=== PATIENT | female | born 1990 | race Caucasian/White ===

== ENCOUNTER → 2017-06-29 | Outpatient (CLI) | payer OTHER ==
[~2017-06-29] MED LIST: ACET-2267 PO; ACET1TAB43 PO; ACHD5005 PO; CYCL10TA9 PO; DCS100C PO; DOCU-143 PO; FEXO180T PO; FRS325T PO; HYDR-3454 PO; HYDR-707 PO; IBUP-1773 PO; Ibuprofen PO; METH4TAB PO; MOME15CR17 TP; ONDA-42 SL; PREN1TAB25 PO; RNT150T PO
--- NOTE | 2017-06-29 18:18 | Diagnostic Imaging Report ---
INDICATION: Z34.92, second trimester . TECHNIQUE: Multiple real-time grayscale images were obtained over the gravid uterus. COMPARISON: None. FINDINGS: A single live intrauterine gestation is noted. The fetus is in a variable presentation throughout the examination. Amniotic fluid index is subjectively within normal limits. The placenta is posteriorly located without evidence of placenta previa. The cervix measures 5.5 cm and is closed. cardiac motion is documented at 167 beats per minute. biometrics are symmetric. They are consistent with an estimated gestational age of 19 weeks and 4 days. This is consistent with clinical dating. Intracranial contents are unremarkable. The spine is grossly unremarkable, though not optimally visualized secondary to lie. Four-chamber heart, stomach, kidneys, and three-vessel cord are unremarkable. Biometrical measurements are as follows: Biparietal 4.33 cm, age 19 weeks 1 days. Head circumference 16.56 cm, age 19 weeks 2 days. Abdominal circumference 14.80 cm, age 20 weeks 1 days. Femur length 3.06 cm, age 19 weeks 4 days. Sonographic estimate age: 19 weeks 4 days. Sonographic estimated date of delivery: 11/19/2017. Estimated Weight: 309 gm (+/- 45 gm). LMP percentile: 18%. heart rate: 167 beats per minute. number: 1 of 1. IMPRESSION: Single live intrauterine gestation at an estimated gestational age of 19 weeks and 4 days. This is consistent with clinical dating. No definite anomaly identified at this time, though evaluation is slightly limited as described above. Dictated by: Dictated on workstation # [id number]
== END ==
LOC: RAD 16:41
PROVIDERS: ATTEND Obstetrics & Gynecology
DX: Z34.92 Encounter for supervision of normal pregnancy, unspecified, second trimester (principal); Z3A.19 19 weeks gestation of pregnancy
CPT/HCPCS: 76805

== ENCOUNTER 2017-11-09 11:00 | Inpatient (IN) | payer OTHER ==
[2017-11-09] VITALS (38 sets, daily range): BP systolic 126–171; BP diastolic 56–106
[~2017-11-09] VITALS: Ht 157.5 cm; Wt 104.4 kg
--- OUTSIDE RECORDS SUMMARY | 2017-11-09 11:35 | XMS REPORT ---
Author Author NAS FERMIN [facility] Address [address] [place] [address] Care Team Providers Care Light Bulb Assembler Name Role Phone NAS FERMIN Unavailable PROBLEMS Type Condition ICD9-CM Code PGJ33-NG Code Onset Dates Condition Status SNOMED Code Problem Need for prophylactic vaccination and inoculation, Influenza V04.81 Active 950243036 Problem Rash and other nonspecific skin eruption 782.1 Active 229739421 Problem Unspecified pruritic disorder 698.9 Active 512379502 Problem Allergy, unspecified not elsewhere classified 995.3 Active 685419870 Problem Unspecified conjunctivitis 372.30 Active 8234939 Problem Acute sinusitis, unspecified 461.9 Active 90789300 Problem Postnasal drip 784.91 Active 35347855 Problem Acute upper respiratory infections of unspecified site 465.9 Active 67757409 Problem Acute pharyngitis 462 Active 213107446 Problem Screening examination for pulmonary tuberculosis V74.1 Active 541758306 ALLERGIES Unknown Allergies SOCIAL HISTORY No smoking Hx information available PLAN OF CARE VITAL SIGNS MEDICATIONS Unknown Medications RESULTS No Results PROCEDURES Procedure Date Ordered Related Diagnosis Body Site TB INTRADERMAL 2016-02-28 Negative TB INTRADERMAL TEST Feb 28, 2016 SINGLE IMMUNIZATION ADMIN Feb 28, 2016 HEP B (ADULT) Feb 28, 2016 IMMUNIZATIONS Vaccine Route Administration Date Status HEP B (ADULT) IM Intramuscular Feb 28, 2016 Administered
--- OUTSIDE RECORDS SUMMARY | 2017-11-09 11:35 | XMS REPORT ---
Author Author NAS FERMIN [facility] Address [address] [place] [address] Care Team Providers Care Dump Worker Name Role Phone NAS FERMIN Unavailable PROBLEMS Type Condition ICD9-CM Code NCE69-SS Code Onset Dates Condition Status SNOMED Code Problem Need for prophylactic vaccination and inoculation, Influenza V04.81 Active 770982187 Problem Postnasal drip 784.91 Active 48748061 Problem Allergy, unspecified not elsewhere classified 995.3 Active 969102713 Problem Screening examination for pulmonary tuberculosis V74.1 Active 514339301 Problem Unspecified conjunctivitis 372.30 Active 4983960 Problem Acute sinusitis, unspecified 461.9 Active 69595462 Problem Unspecified pruritic disorder 698.9 Active 076468246 Problem Rash and other nonspecific skin eruption 782.1 Active 768937689 Problem Acute pharyngitis 462 Active 909814735 Problem Acute upper respiratory infections of unspecified site 465.9 Active 83118049 ALLERGIES Unknown Allergies SOCIAL HISTORY No smoking Hx information available PLAN OF CARE VITAL SIGNS MEDICATIONS Unknown Medications RESULTS No Results PROCEDURES Procedure Date Ordered Related Diagnosis Body Site TB INTRADERMAL TEST Mar 21, 2016 IMMUNIZATIONS No Known Immunizations
--- OUTSIDE RECORDS SUMMARY | 2017-11-09 11:35 | XMS REPORT ---
Author NAS Alvarenga [facility] e[employer] Address Unknown Phone Unavailable Care Team Providers Care Rabbit Dresser Name Role Phone NAS FERMIN CP Unavailable Allergies No Known Allergies Problems Problem Type Condition Code Onset Dates Condition Status Problem Allergy, unspecified not elsewhere classified 995.3 Active Problem Unspecified pruritic disorder 698.9 Active Problem Need for prophylactic vaccination and inoculation, Influenza V04.81 Active Assessment Encounter for immunization Z23 Active Problem Acute sinusitis, unspecified 461.9 Active Problem Acute pharyngitis 462 Active Problem Unspecified conjunctivitis 372.30 Active Problem Acute upper respiratory infections of unspecified site 465.9 Active Problem Rash and other nonspecific skin eruption 782.1 Active Problem Screening examination for pulmonary tuberculosis V74.1 Active Problem Postnasal drip 784.91 Active Medications No Known Medications Procedures Procedure Coding System Code Date SINGLE IMMUNIZATION ADMIN CPT-4 26942 Jan 11, 2015 FLUARIX QUAD (3 & UP)-GSK-2014 CPT-4 74426 Jan 11, 2015 Results No Known Results Immunizations Vaccine Administration Date FLUARIX QUAD (3 & UP)-GSK-2014Jan 11, 2015 Summary Purpose eClinicalWorks Submission
--- OUTSIDE RECORDS SUMMARY | 2017-11-09 11:36 | XMS REPORT | Continuity of Care Document ---
Author Author [facility] Address Unknown Phone Unavailable Allergies Active Description Code Type Severity Reaction Onset Reported/Identified Relationship to Patient Clinical Status Yes No Known Drug Allergies [id number] Drug Allergy Unknown N/A 05/15/2012 Medications There is no data. Problems Date Dx Coded Attending Type Code Diagnosis Diagnosed By 10/10/2010 NAS FERMIN DO V06.1 TDAP DX 10/10/2010 UMBERTO ENG APRN V06.1 TDAP DX 10/10/2010 NAS FERMIN DO V06.1 TDAP DX 10/10/2010 GILDA REIS APRN V06.1 TDAP DX 08/25/2011 NAS FERMIN DO V74.1 TB SCREENING 08/25/2011 UMBERTO ENG APRN V74.1 TB SCREENING 08/25/2011 NAS FERMIN DO V74.1 TB SCREENING 08/25/2011 GILDA REIS APRN R V74.1 TB SCREENING 03/30/2012 NAS FERMIN DO K 465.9 UPPER RESPIRATORY INFECTION 03/30/2012 NAS FERMIN DO 698.9 UNSPECIFIED PRURITIC DISORDER 03/30/2012 NAS FERMIN DO 782.1 RASH 03/30/2012 NAS FERMIN DO K 784.91 POSTNASAL DRIP 03/30/2012 UMBERTO ENG APRN 465.9 UPPER RESPIRATORY INFECTION 03/30/2012 UMBERTO ENG APRN 698.9 UNSPECIFIED PRURITIC DISORDER 03/30/2012 UMBERTO ENG APRN 782.1 RASH 03/30/2012 UMBERTO ENG APRN 784.91 POSTNASAL DRIP 03/30/2012 NAS FERMIN DO K 465.9 UPPER RESPIRATORY INFECTION 03/30/2012 JOSR FERMIN DOA K 698.9 UNSPECIFIED PRURITIC DISORDER 03/30/2012 JOSR FERMIN DOA K 782.1 RASH 03/30/2012 NAS FERMIN DO K 784.91 POSTNASAL DRIP 03/30/2012 CHATO TRAMMELLN, GILDA R 465.9 UPPER RESPIRATORY INFECTION 03/30/2012 CHATO TRAMMELLN, GILDA R 698.9 UNSPECIFIED PRURITIC DISORDER 03/30/2012 CHATO SAEZ, GILDA R 782.1 RASH 03/30/2012 GILDA REIS APRN R 784.91 POSTNASAL DRIP 05/15/2012 Ot 789.03 05/15/2012 Ot 924.01 05/15/2012 Ot E000.8 05/15/2012 Ot E885.9 02/24/2013 CARMELLA ARMENDARIZ MD Ot 924.8 MULTIPLE CONTUSIONS NEC 02/24/2013 CARMELLA ARMENDARIZ MD Ot 959.01 HEAD INJURY, NOS 02/24/2013 CARMELLA ARMENDARIZ MD Ot E000.8 OTHER EXTERNAL CAUSE STATUS 02/24/2013 CARMELLA ARMENDARIZ MD Ot 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 10/21/2013 DIALLO AYON DO Ot 642.33 10/21/2013 DIALLO AYON DO Ot 784.0 10/29/2013 YU RADHA COBOS Ot 642.31 10/29/2013 [place] DORADHA Ot 643.91 10/29/2013 YU RADHA COBOS Ot 787.91 10/29/2013 [place] DORADHA Ot V06.1 10/29/2013 [place] DORADHA Ot V06.4 10/29/2013 YU RADHA COBOS Ot V27.0 12/19/2013 CLAIRE PRADO DO Ot 574.20 12/29/2013 UMBERTO ENG APRN V04.81 FLU SHOT 12/29/2013 ZANDER NAS V04.81 FLU SHOT 12/29/2013 GILDA REIS APRN V04.81 FLU SHOT 01/31/2014 ADRIANA VELASQUEZ, ERNA Sinclair Ot 787.01 01/31/2014 DIALLO AYON DO Ot 401.9 01/31/2014 DIALLO AYON DO Ot 784.0 01/31/2014 CLAIRE PRADO DO Ot 574.20 01/31/2014 CLAIRE PRADO DO Ot V72.63 01/31/2014 PRADO DO, CLAIRE D Ot V74.8 2014 PRADO DO, CLAIRE D Ot 574.20 2014 PRADO DO, CLAIRE D Ot V72.63 2014 PRADO DO, CLAIRE D Ot V74.8 04/08/2014 FERMIN NAS COBOS K 995.3 ALLERGY UNSPECIFIED NOT ELSEWHERE CLASSIFIED 04/08/2014 CHATO TEAM PHYSICIAN, GILDA R 995.3 ALLERGY UNSPECIFIED NOT ELSEWHERE CLASSIFIED 04/25/2014 CHATO TEAM PHYSICIAN, GILDA R 372.30 CONJUNCTIVITIS UNSPECIFIED 04/25/2014 CHATO TEAM PHYSICIAN, GILDA R 461.9 SINUSITIS ACUTE 04/25/2014 CHATO TEAM PHYSICIAN, GILDA R 462 ACUTE PHARYNGITIS 01/31/2015 YU DO, RADHA C Ot Z34.90 01/31/2015 YU DO, RADHA C Ot Z36 02/23/2015 YU DO, RADHA C Ot Z34.90 02/23/2015 YU DO, RADHA C Ot Z36 05/02/2015 BISI VELASQUEZ, ENZO N Ot O47.9 FALSE LABOR, UNSPECIFIED 05/02/2015 BISI VELASQUEZ, ENZO N Ot Z3A.00 WEEKS OF GESTATION OF NOT SPEC 05/24/2015 YU DO, RADHA C Ot O13.3 05/24/2015 YU DO, RADHA C Ot O69.81X0 05/24/2015 YU DO, RADHA C Ot Z37.0 05/24/2015 YU DO, RADHA C Ot Z3A.37 10/05/2015 YU DO, RADHA C Ot N63 UNSPECIFIED LUMP IN BREAST 10/05/2015 YU DO, RADHA C Ot N63 UNSPECIFIED LUMP IN BREAST 10/26/2015 YU DO, RADHA C Ot N63 UNSPECIFIED LUMP IN BREAST 12/30/2015 ABRAHAN MAE DOA K Ot L23.2 ALLERGIC CONTACT DERMATITIS DUE TO TYRON 12/30/2015 TU COBOS JANET K Ot R21 RASH AND OTHER NONSPECIFIC SKIN ERUPTION 01/01/2016 ABRAHAN MAE DOA K Ot L23.2 ALLERGIC CONTACT DERMATITIS DUE TO TYRON 01/01/2016 TU COBOS JANET K Ot R21 RASH AND OTHER NONSPECIFIC SKIN ERUPTION 06/30/2017 RAHDA YU DO Ot Z34.92 ENCNTR FOR SUPRVSN OF NORMAL PREG, UNSP, 06/30/2017 RADHA YU DO Ot Z3A.19 19 WEEKS GESTATION OF 06/30/2017 RADHA YU DO Ot Z34.92 ENCNTR FOR SUPRVSN OF NORMAL PREG, UNSP, 06/30/2017 RDAHA YU DO Ot Z3A.19 19 WEEKS GESTATION OF 07/30/2017 RADHA YU DO Ot Z34.92 ENCNTR FOR SUPRVSN OF NORMAL PREG, UNSP, 07/30/2017 RADHA YU DO Ot Z3A.19 19 WEEKS GESTATION OF Procedures Code Description [place] [address] IMMUNOTHERAPY INJECTIONS 04/18/2014 60782 IMMUNOTHERAPY INJECTIONS 04/25/2014 Results There is no data. Encounters ACCT No. Visit Date/Time Discharge Status Pt. Type Provider Facility Loc./Unit Complaint [id number] 04/25/2014 16:37:00 04/25/2014 23:59:59 CLS Outpatient GILDA REIS APRN [id number] 04/18/2014 16:56:00 04/18/2014 23:59:59 CLS Outpatient NAS FERMIN DO [id number] 12/29/2013 15:05:00 12/29/2013 23:59:59 CLS Outpatient UMBERTO ENG APRN [id number] 03/30/2012 14:16:00 03/30/2012 23:59:59 CLS Outpatient NAS FERMIN DO [id number] 01/31/2014 07:42:07 ACT Document Registration [id number] 06/29/2017 16:41:00 06/29/2017 23:59:59 CLS Outpatient RADHA YU DO [facility] RAD Z34.92 2ND TRIMESTER [id number] 12/30/2015 17:58:00 12/30/2015 19:24:00 DIS Emergency JANET MAE DO [facility] ER FACIAL SWELLING/REDNESS [id number] 10/04/2015 10:00:00 10/04/2015 23:59:59 CLS Outpatient RADHA UY DO [facility] RAD BREAST LUMP [id number] 05/22/2015 08:24:00 05/24/2015 12:50:00 DIS Inpatient RADHA YU DO Sriram [facility] LDRP [id number] 05/02/2015 19:54:00 05/02/2015 22:53:00 DIS Outpatient BISI VELASQUEZ, ENZO Danielle [facility] [id number] 01/29/2015 14:37:00 01/29/2015 23:59:59 CLS Outpatient RADHA YU DO [facility] RAD [id number] 01/31/2014 07:31:00 01/31/2014 09:32:00 DIS Emergency ADRIANA VELASQUEZ, ERNA Sinclair [facility] ER [id number] 12/19/2013 06:00:00 12/19/2013 13:25:00 DIS Outpatient CLAIRE PRADO DO [facility] [id number] 12/13/2013 10:24:00 12/13/2013 23:59:59 CLS Outpatient CLAIRE PRADO DO [facility] PREOP [id number] 10/26/2013 19:18:00 10/29/2013 21:00:00 DIS Inpatient RADHA YU DO Sriram [facility] LDRP [id number] 10/22/2013 11:23:00 10/22/2013 23:59:59 CLS Outpatient DIALLO AYON DO S [facility] LAB [id number] 10/21/2013 09:47:00 10/21/2013 12:50:00 DIS Outpatient DIALLO AYON DO S [facility] WSo [id number] 02/24/2013 09:12:00 02/24/2013 12:33:00 DIS Emergency CARMELLA ARMENDARIZ MD [facility] ER [id number] 01/31/2014 09:54:00 Document Registration [id number] 05/15/2012 09:15:00 Document Registration
[2017-11-09] MEDS ORDERED: LIDOCAINE/EPI 2% 1:200,00 (XYLOCAINE) 10 ML VIAL INJ ONE (12:30)
[2017-11-09] MEDS ORDERED: MINERAL OIL CONCENTRATE 99.9% 15 ML UDC TOP PRN (12:30)
[2017-11-09 12:57] LABS: BASOPHILS % (AUTO) 0 % (0-10); EOSINOPHILS # (AUTO) 0.2 10^3/uL (0.0-0.3); EOSINOPHILS % (AUTO) 1 % (0-10); HEMATOCRIT 36 % (35-52); HEMOGLOBIN 12.2 G/DL (11.5-16.0); LYMPHOCYTES # (AUTO) 2.4 X 10^3 (1.0-4.0); LYMPHOCYTES % (AUTO) 19 % (12-44); MEAN CORPUSCULAR HEMOGLOBIN 28 PG (25-34); MEAN CORPUSCULAR HGB CONC 34 G/DL (32-36); MEAN CORPUSCULAR VOLUME 83 FL (80-99); MEAN PLATELET VOLUME 10.5 FL (7.4-10.4); MONOCYTES % (AUTO) 8 % (0-12); NEUTROPHILS # (AUTO) 9.1 X 10^3 (1.8-7.8); NEUTROPHILS % (AUTO) 72 % (42-75); PLATELET COUNT 305 10^3/uL (130-400); RED BLOOD COUNT 4.38 10^6/uL (4.35-5.85); RED CELL DISTRIBUTION WIDTH 14.8 % (10.0-14.5); WHITE BLOOD COUNT 12.7 10^3/uL (4.3-11.0)
[2017-11-09 13:01] LABS: BILIRUBIN,URINE NEGATIVE (NEGATIVE); CLARITY,URINE CLEAR; COLOR,URINE YELLOW; GLUCOSE, URINE (UA) NEGATIVE (NEGATIVE); KETONES,URINE 2+ (NEGATIVE); LEUKOCYTE ESTERASE ,URINE NEGATIVE (NEGATIVE); NITRITE,URINE NEGATIVE (NEGATIVE); PH,URINE 7 (5-9); PROTEIN,URINE NEGATIVE (NEGATIVE); UROBILINOGEN,URINE NORMAL (NORMAL)
--- NOTE | 2017-11-09 13:01 | History & Physical-OB ---
OB - Chief Complaint & HPI Date/Time Date of Admission: Date of Admission: Nov 09, 2017 at 11:00 Time Seen by Provider: 12:30 Chief Complaint/History OB-Reason for Admission/Chief: Onset of Labor Hx : 4 Hx Para: 2 Expected Date of Delivery: Nov 14, 2017 Gestational Age in Weeks: 39 Gestational Age in Days: 2 Other reason for admission: Presented to women's services with complaint of regular contractions. every 1- 2 minutes on arrival. complicated by gestational hypertension, no proteinuria. otherwise uncomplicated. Admission Nurse Assessment Rev: Yes History of Labs a-/- HIV, Hep C, Hep B - Rub I GBS - VDRL NR Allergies and Home Medications Allergies Coded Allergies: No Known Drug Allergies (Unverified , 05/15/12) Home Medications Docusate Sodium 100 Mg Capsule, 100 MG PO BID PRN for CONSTIPATION-1ST LINE Prescribed by: DIALLO AYON on 11/11/17813 Ibuprofen 600 Mg Tablet, 600 MG PO Q6H Prescribed by: DIALLO AYON on 11/11/17813 Vit#96/Ferrous Fum/Fa 1 Each Tablet, 1 TAB PO DAILY, (Reported) [Benzocaine/Menthol] 56 ML AEROSOL, 56 ML TP UD PRN for PAIN- SEE INSTRUCTIONS EXTERNAL USE ONLY Prescribed by: DIALLO AYON on 11/11/17813 Patient Home Medication List Home Medication List Reviewed: No OB - History Hx of Present Ultrasounds: Normal mid trimester US Obstetrical Complications: Gestational Hypertension Medical Complications: None Information Induced Hypertension: Yes Maternal Gestational Diabetes: No Hemorrhage: No Obstetrical History Hx : 4 Hx Para: 2 Hx # Term Pregnancies: 2 Hx # Pregnancies: 0 Number of Living Children: 2 Hx Termination: No Hx Total # of Abortions (Spona: 1 Hx Multiple Gestation: No Hx Stillbirth: No Hx Complication: No Hx Induced Hypertens: No Hx Maternal Gestational Diabet: No Delivery History Hx Dystocia: No Hx Large For Gestational Age I: No Hx Small for Gestational Age I: No Hx Section: No Hx Vaginal Delivery Post C-Sec: No Hx Blood Disorders: No Adverse Rxn to Tranfusion: No Patient Past Medical History NC Social History/Family History HIV/AIDS: No Recent Infectious Disease Expo: No Sexually Transmitted Disease: No Alcohol Use: Denies Use Recreational Drug Use: No Smoking Cessation: Never smoker Immunizations Hepatitis A: No Hepatitis B: Yes Tetanus Booster (TDap): Less than 5yrs Date of Influenza Vaccine: Jan 14, 2015 Rubella: immune RPR/VDRL: Negative GBS Status: Negative HBsAG: Negative OB - Admission Exam Physical Exam Heart: Rhythm Normal Lungs: Clear, Crackles Abdomen: Gravid Cervical Dilatation: 2cm Effacement: 75% Station: -2 Membranes: Intact Heart Rate: 130's Accelerations: Accelerations Present Decelerations: No Decelerations Short Term Variability: Present Parachute/Combatant Diver Officer Variability: Average (6-25) Labs Laboratory Tests Test 11/09/17 12:30 11/09/17 12:45 Range/Units White Blood Count 12.7 H 4.3-11.0 10^3/uL Red Blood Count 4.38 4.35-5.85 10^6/uL Hemoglobin 12.2 11.5-16.0 G/DL Hematocrit 36 35-52 % Mean Corpuscular Volume 83 80-99 FL Mean Corpuscular Hemoglobin 28 25-34 PG Mean Corpuscular Hemoglobin Concent 34 32-36 G/DL Red Cell Distribution Width 14.8 H 10.0-14.5 % Platelet Count 305 130-400 10^3/uL Mean Platelet Volume 10.5 H 7.4-10.4 FL Neutrophils (%) (Auto) 72 42-75 % Lymphocytes (%) (Auto) 19 12-44 % Monocytes (%) (Auto) 8 0-12 % Eosinophils (%) (Auto) 1 0-10 % Basophils (%) (Auto) 0 0-10 % Neutrophils # (Auto) 9.1 H 1.8-7.8 X 10^3 Lymphocytes # (Auto) 2.4 1.0-4.0 X 10^3 Monocytes # (Auto) 1.0 0.0-1.0 X 10^3 Eosinophils # (Auto) 0.2 0.0-0.3 10^3/uL Basophils # (Auto) 0.0 0.0-0.1 10^3/uL OB - Assessment/Plan/Diagnosis Assessment Assessment: active labor Admission Dx Active labor at 39 + weeks gestational hypertension Admission Status: Inpatient Order (span 2 midnights) Reason for Inpatient Admission: labor/delivery Plan Plan: Expectant Management Other Plan Anticipate RADHA BASS DO Nov 09, 2017 13:01
[2017-11-09 13:07] LABS: BACTERIA,URINE NEGATIVE /HPF; RBC,URINE RARE /HPF; SQUAMOUS EPITHELIAL CELL,UR 0-2 /HPF; WBC,URINE RARE /HPF
[2017-11-09 13:24] LABS: URINE CREATININE FOR RATIO 29 MG/DL (30-125); URINE PROTEIN FOR RATIO ONLY < 6 MG/DL (6-12)
[2017-11-09] MEDS: D5 LR IV SOLUTION 1,000 ML IV SCH ×2 (13:27→21:20)
[2017-11-09] MEDS ORDERED: CATHETER FLUSH 10 ML SYR IV SCH (14:00)
[2017-11-09 14:08] LABS: ALANINE AMINOTRANSFERASE 15 U/L (0-55); ALBUMIN 3.4 GM/DL (3.2-4.5); ALKALINE PHOSPHATASE 112 U/L (40-136); BILIRUBIN,TOTAL 0.4 MG/DL (0.1-1.0); BUN/CREATININE RATIO 11; CALCIUM 9.5 MG/DL (8.5-10.1); CARBON DIOXIDE 17 MMOL/L (21-32); CHLORIDE 107 MMOL/L (98-107); CREATININE SERUM 0.56 MG/DL (0.60-1.30); GFR ESTIMATED > 60; GLUCOSE 73 MG/DL (70-105); POTASSIUM 4.5 MMOL/L (3.6-5.0); SODIUM 136 MMOL/L (135-145); URIC ACID 4.1 MG/DL (2.6-7.2)
[2017-11-09] MEDS ORDERED: MISOPROSTOL 100 MCG (CYTOTEC) TAB PO ONE (18:00)
[2017-11-09] MEDS ORDERED: SUFENTA 0.6MCG/ML BUPIVA 0.125 100 ML ONE (20:20)
[2017-11-09] MEDS ORDERED: fentaNYL INJECTION 100 MCG/2 ML AMP ONE (20:37)
[2017-11-09] MEDS ORDERED: BUPIVACAINE 0.25% 30 ML (SENSORCAINE) VIAL ONE (20:37)
[2017-11-09] MEDS ORDERED: LIDOCAINE PF 2% 5 ML (XYLOCAINE) VIAL ONE (20:37)
[2017-11-09] MEDS ORDERED: LIDOCAINE/EPI 2% 1:200,00 (XYLOCAINE) 10 ML VIAL ONE (21:06)
[2017-11-09] MEDS ORDERED: OXYTOCIN/NORMAL SALINE 500 ML IV ONE (21:06)
[2017-11-09] MEDS ORDERED: LACTATED RINGERS 1,000 ML IV ONE ×2 (21:23)
[2017-11-09] MEDS ORDERED: EPIDURAL (SUFENTA 0.6MCG/ML BUPIVA 0.125%) 100 ML BAG EPI PRN (21:30)
[2017-11-09] MEDS ORDERED: NALOXONE 0.4 MG/ML 1 ML (NARCAN) VIAL IV PRN (21:30)
[2017-11-09] MEDS ORDERED: ONDANSETRON 4 MG/2 ML (SDV) Z0FRAN IV PRN (21:30)
[2017-11-09] MEDS ORDERED: OXYTOCIN/NORMAL SALINE 500 ML IV SCH (21:41)
[2017-11-09] MEDS ORDERED: MISOPROSTOL 100 MCG (CYTOTEC) TAB PO SCH (22:00)
[2017-11-10] VITALS (11 sets, daily range): BP systolic 127–161; BP diastolic 63–88
[2017-11-10] MEDS ORDERED: OXYTOCIN/NORMAL SALINE 500 ML IV SCH (00:34)
--- NOTE | 2017-11-10 00:38 | OB Labor & Delivery Record ---
Vag Delivery Note Vag Delivery Note Date of Delivery: 11/10/17 Preoperative Diagnosis: Alessia Tan is a 28 /Para 32 / , Gestational Age 39 4/7 weeks with spontaneous labor, gestational hypertension Postoperative Diagnosis: Same Surgeon: RADHA YU Anesthesia: epidural Delivery Type: vaginal Findings: Viable female infant, apgars 8/9, weight 6#10oz Lacerations: none Intact placenta with 3 vessel cord. No nuchal cord, body cord or shoulder dystocia Estimated Blood Loss: 150 ml Complications: None Condition: Stable Description of Procedure: The patient is a 28 /Para 32/ ,Gestational Age 39 4/7 weeks with spontaneous labor, gestational hypertension. She was admitted and informed consent was obtained. Her labor course was remarkable for AROM, epidural and oxytocin augmention. She progressed to complete dilatation and began to push. She was then set up for delivery. The infant's head was delivered atraumatically in the ELIZABETH position. The shoulders and remainder of the 's body were then delivered without difficulty. Upon delivery, the head was held below the level of the perineum and the mouth and nares were bulb suctioned. The cord was doubly clamped and cut and the infant was handed off to the pediatric staff. An intact placenta with 3-vessel cord delivered via Lenore and there was found to be minimal bleeding.~ Vigorous fundal massage was performed and the fundus was found to be firm. IV oxytocin was given. Examination of the vagina and perineum revealed no laceration repaired in the usual fashion with 3-0 vicryl suture. Following the delivery, sponge, instrument and needle counts were correct. Mom and baby were both in stable condition in the labor suite. Vitals - Labs Vital Signs - I&O Vital Signs Date Time Temp Pulse Resp B/P (MAP) Pulse Ox O2 Delivery O2 Flow Rate FiO2 11/09/17 22:45 88 20 133/67 (89) 99 Room Air 11/09/17 22:30 93 20 131/64 (86) 99 Room Air 11/09/17 22:15 80 20 131/67 (88) 100 Room Air 11/09/17 22:10 90 20 127/60 (82) 99 Room Air 11/09/17 22:00 93 20 126/58 (80) 99 Room Air 11/09/17 21:45 90 20 139/78 (98) 99 Room Air 11/09/17 21:40 82 20 132/60 (84) 99 Room Air 11/09/17 21:35 83 20 128/56 (80) 99 Room Air 11/09/17 21:30 85 20 126/59 (81) 99 Room Air 11/09/17 21:25 86 20 127/61 (83) 99 Room Air 11/09/17 21:20 82 20 145/68 (93) 99 Room Air 11/09/17 21:15 97.6 90 20 138/68 (91) 99 Room Air 11/09/17 21:10 95 20 142/74 (96) 99 Room Air 11/09/17 21:05 90 20 135/71 (92) 99 Room Air 11/09/17 21:02 86 20 141/71 (94) 99 Room Air 11/09/17 20:59 98 20 136/79 (98) Room Air 11/09/17 20:56 96 20 139/79 (99) Room Air 11/09/17 20:52 112 20 142/76 (98) 100 Room Air 11/09/17 20:48 112 20 153/85 (107) 100 Room Air 11/09/17 20:42 97 20 141/78 (99) 99 Room Air 11/09/17 20:40 102 20 140/76 (97) Room Air 11/09/17 20:15 90 20 147/84 (105) Room Air 11/09/17 20:10 102 20 141/91 (108) Room Air 11/09/17 19:40 93 20 137/62 (87) Room Air 11/09/17 19:10 97.5 88 20 140/77 (98) Room Air 11/09/17 15:24 99 20 142/66 (91) Room Air 11/09/17 14:55 97 20 137/78 (97) Room Air 11/09/17 14:25 94 20 139/66 (90) Room Air 11/09/17 13:55 88 20 142/78 (99) Room Air 11/09/17 13:27 99 20 135/66 (89) Room Air 11/09/17 12:25 100 20 138/78 (98) Room Air 11/09/17 11:50 97.8 105 20 144/85 (104) Room Air 11/09/17 11:15 95 20 155/80 (105) Room Air 11/09/17 11:10 107 20 171/106 (127) Room Air I & O 11/10/17 07:00 Intake Total 2000 ml Balance 2000 ml Labs Laboratory Tests 11/09/17 12:30: Urine Color YELLOW, Urine Clarity CLEAR, Urine pH 7, Urine Specific Boykins 1.010L, Urine Protein < 6L, Urine Glucose (UA) NEGATIVE, Urine Ketones 2+H, Urine Nitrite NEGATIVE, Urine Bilirubin NEGATIVE, Urine Urobilinogen NORMAL, Urine Leukocyte Esterase NEGATIVE, Urine RBC (Auto) NEGATIVE, Urine RBC RARE, Urine WBC RARE, Urine Squamous Epithelial Cells 0-2, Urine Crystals NONE, Urine Bacteria NEGATIVE, Urine Casts NONE, Urine Mucus NEGATIVE, Urine Culture Indicated NO, Urine Creatinine 29L, Urine Protein/Creatinine Ratio 11/09/17 12:45: White Blood Count 12.7H, Red Blood Count 4.38, Hemoglobin 12.2, Hematocrit 36, Mean Corpuscular Volume 83, Mean Corpuscular Hemoglobin 28, Mean Corpuscular Hemoglobin Concent 34, Red Cell Distribution Width 14.8H, Platelet Count 305, Mean Platelet Volume 10.5H, Neutrophils (%) (Auto) 72, Lymphocytes (%) (Auto) 19 , Monocytes (%) (Auto) 8, Eosinophils (%) (Auto) 1, Basophils (%) (Auto) 0, Neutrophils # (Auto) 9.1H, Lymphocytes # (Auto) 2.4, Monocytes # (Auto) 1.0, Eosinophils # (Auto) 0.2, Basophils # (Auto) 0.0 11/09/17 13:20: Sodium Level 136, Potassium Level 4.5, Chloride Level 107, Carbon Dioxide Level 17L, Anion Gap 12, Blood Urea Nitrogen 6L, Creatinine 0.56L, Estimat Glomerular Filtration Rate > 60, BUN/Creatinine Ratio 11, Glucose Level 73, Uric Acid 4.1, Calcium Level 9.5, Corrected Calcium 10.0, Total Bilirubin 0.4, Aspartate Amino Transf (AST/SGOT) 25, Alanine Aminotransferase (ALT/SGPT) 15, Alkaline Phosphatase 112, Lactate Dehydrogenase 267H, Total Protein 7.0, Albumin 3.4 RADHA YU DO Nov 10, 2017 00:38
[2017-11-10] MEDS ORDERED: MEASLES,MUMPS,RUBELLA 1 EA INJ SQ ONE (00:45)
[2017-11-10] MEDS ORDERED: DIBUCAINE (NUPERCAINAL) 1% OINT 30 GM TOP PRN (00:45)
[2017-11-10] MEDS ORDERED: BENZOCAINE/MENTHOL (DERMOPLAST) 56 ML CAN TP PRN (00:45)
[2017-11-10] MEDS ORDERED: WITCH HAZEL(TUCKS) 40 EA JAR TOP PRN (00:45)
[2017-11-10] MEDS ORDERED: ACETAMINOPHEN 500 MG TAB (TYLENOL) PO PRN (00:45)
[2017-11-10] MEDS ORDERED: TETANUS,DIPTH,PERTUSS P/F (BOOSTRIX) 0.5 ML VIAL IM ONE (00:45)
[2017-11-10] MEDS: IBUPROFEN 600 MG (MOTRIN) TAB PO SCH ×4 (01:00→21:06)
[2017-11-10] MEDS ORDERED: CATHETER FLUSH 10 ML SYR IV SCH (06:00)
[2017-11-10] MEDS ORDERED: PRENATAL VITAMIN 1 EA TAB PO SCH (07:00)
--- NOTE | 2017-11-10 07:07 | Anesthesia-Regional Post-Op ---
Regional Patient Condition Mental Status: Alert, Oriented x3 Circulation: Same as Pre-Op Headache: Absent Sensation: Full Recovery Motor Block: Absent Post Op Complications Complications None Follow Up Care/Instructions Patient Instructions None needed. Anesthesia/Patient Condition Patient is doing well, no complaints, stable vital signs, no apparent adverse anesthesia problems. No complications reported per nursing. BHAVANA JAIMES CRNA Nov 10, 2017 07:07
[2017-11-10] MEDS: FERROUS SULF 325 MG (IRON) TAB PO SCH (08:25)
[2017-11-10] MEDS: DOCUSATE SODIUM 100 MG (COLACE) CAP PO SCH ×2 (08:25→21:06)
[2017-11-11] MEDS: IBUPROFEN 600 MG (MOTRIN) TAB PO SCH ×2 (03:01→08:48)
[2017-11-11 03:02] VITALS: BP 130/84
[2017-11-11 06:06] LABS: BASOPHILS # (AUTO) 0.1 10^3/uL (0.0-0.1); BASOPHILS % (AUTO) 1 % (0-10); EOSINOPHILS # (AUTO) 0.4 10^3/uL (0.0-0.3); EOSINOPHILS % (AUTO) 5 % (0-10); HEMATOCRIT 35 % (35-52); HEMOGLOBIN 11.5 G/DL (11.5-16.0); LYMPHOCYTES # (AUTO) 2.9 X 10^3 (1.0-4.0); LYMPHOCYTES % (AUTO) 30 % (12-44); MEAN CORPUSCULAR HEMOGLOBIN 28 PG (25-34); MEAN CORPUSCULAR HGB CONC 33 G/DL (32-36); MEAN CORPUSCULAR VOLUME 85 FL (80-99); MEAN PLATELET VOLUME 10.8 FL (7.4-10.4); MONOCYTES # (AUTO) 1.2 X 10^3 (0.0-1.0); MONOCYTES % (AUTO) 12 % (0-12); NEUTROPHILS # (AUTO) 5.2 X 10^3 (1.8-7.8); NEUTROPHILS % (AUTO) 53 % (42-75); PLATELET COUNT 270 10^3/uL (130-400); RED BLOOD COUNT 4.09 10^6/uL (4.35-5.85); RED CELL DISTRIBUTION WIDTH 14.9 % (10.0-14.5); WHITE BLOOD COUNT 9.8 10^3/uL (4.3-11.0)
[2017-11-11] MEDS ORDERED: Benzocaine/Menthol TP (08:14)
[2017-11-11] MEDS ORDERED: IBUP-844 PO (08:14)
[2017-11-11] MEDS ORDERED: DOCU100C37 PO (08:14)
--- NOTE | 2017-11-11 08:21 | Discharge Inst-Women's Service ---
Discharge Inst-Women's Serv Depart Medication/Instructions New, Converted or Re-Newed RX: Transmitted to Pharmacy Final Diagnosis vaginal delivery spontaneous labor Consults/Follow Up Additional Follow Up: Yes (6 weeks for pp exam) Activity Activity: Activity as Tolerated Driving Instructions: You May Drive NO SMOKING: NO SMOKING Nothing Inside Vagina: No Douching, No Rheems, No Tampons Diet Discharge Diet: No Restrictions Symptoms to Report to : Swelling Increased, Bleeding Excessive, Pain Increased, Fever Over 101 Degrees F, Vaginal Bleeding Increase, Cramps in Feet or Legs, Vaginal Discharge Foul For Any Problems or Questions: Contact Your Physician RADHA YU DO Nov 11, 2017 08:21
[2017-11-11] MEDS: FERROUS SULF 325 MG (IRON) TAB PO SCH (08:48)
[2017-11-11] MEDS: DOCUSATE SODIUM 100 MG (COLACE) CAP PO SCH (08:48)
[2017-11-11 08:50] VITALS: BP 137/84
--- NOTE | 2017-11-12 16:49 | Physician Query-General Query ---
Physician Query-General Query to Physician: Please provide clarification on the delivery note: Findings state lacerations: none Body of report "Examination of the vagina and perineum revealed no laceration repaired in the usual fashion with 3-0 vicryl suture" Please choose one of the followin. no laceration, no repair needed 2. laceration, please specify location PHYSICIAN RESPONSE: no laceration Based on the clinical findings in the record, please respond to the query above on this document as an addendum. Possible, probable, or questionable diagnosis can be coded for INPATIENTS ONLY. Physician Response: Physician Response none If you have questions please contact: Floriculturist: Ext: Thank you for your time and cooperation. Clinical Head Usher/Floriculturist This is a permanent part of the medical record DEL PADILLA Nov 12, 2017 16:49 RADHA YU DO Dec 02, 2017 14:48
== END 2017-11-11 13:10 | disposition home or self-care (01) | DRG 775 ==
LOC: LDRP 11:00
PROVIDERS: ADMIT Obstetrics & Gynecology; ATTEND Obstetrics & Gynecology
PROC: 10E0XZZ Delivery of Products of Conception, External Approach (ICD-10-PCS; principal; 2017-11-10)
DX: O13.4 Gestational [pregnancy-induced] hypertension without significant proteinuria, complicating childbirth (principal); Z3A.39 39 weeks gestation of pregnancy; Z37.0 Single live birth
CPT/HCPCS: 36415; 80053; 81000; 82570; 83615; 84156; 84550; 85025; 86850; 86900; 86901; 99212

== ENCOUNTER 2017-12-10 15:18 | Emergency (ER) | payer OTHER ==
[~2017-12-10] VITALS: Ht 157.5 cm; Wt 104.4 kg
[~2017-12-10 15:18] MED LIST changes: +Benzocaine/Menthol TP; +DOCU100C37 PO; +IBUP-844 PO
--- NOTE | 2017-12-10 17:07 | ED Chest Pain ---
General Chief Complaint: Chest Pain Stated Complaint: 20 MINS AGO EXPERIENCED EXTREME CHEST PAIN,SHAKY Nursing Triage Note: PT STATES SHE WAS FEEDING HER WHEN SHE HAD A SNEEZING ATTACK, THEN HAD SEVERE CHEST PAIN ALL THE WAY AROUND HER CHEST, BI LATERALLY. PAIN NOW RATED AT 2 BUT GOES UP TO 5 OFF AND ON, MOSTLY BETWEEN HER SHOULDER BLADES. Nursing Sepsis Screen: No Definite Risk Source: patient, family Exam Limitations: no limitations History of Present Illness Date Seen by Provider: Dec 10, 2017 Time Seen by Provider: 16:40 Initial Comments Patient is a 27-year-old female who presents to the emergency room with chest pain after a "sneezing attack". She reports that after she was done sneezing she had chest pain that felt like it was squeezing her chest bilaterally. She said the sharp pain lasted approximately 20 minutes but now she has intermittent stabbing pain between her shoulders. She denies shortness of breath. She is 4 weeks post vaginal delivery. Timing/Duration: 1 hour Severity/Quality: mild, pressure Location: shoulder (shoulder blades) Radiation: no radiation ASA po BEE BREEDER: No NTG SL BEE BREEDER: No Associated Symptoms: denies symptoms Allergies and Home Medications Allergies Coded Allergies: No Known Drug Allergies (Unverified , 05/15/12) Home Medications Docusate Sodium 100 Mg Capsule, 100 MG PO BID PRN for CONSTIPATION-1ST LINE Prescribed by: DIALLO AYON on 11/11/17813 Ibuprofen 600 Mg Tablet, 600 MG PO Q6H Prescribed by: DIALLO AYON on 11/11/17813 Vit#96/Ferrous Fum/Fa 1 Each Tablet, 1 TAB PO DAILY, (Reported) [Benzocaine/Menthol] 56 ML AEROSOL, 56 ML TP UD PRN for PAIN- SEE INSTRUCTIONS EXTERNAL USE ONLY Prescribed by: DIALLO AYON on 11/11/17813 Patient Home Medication List Home Medication List Reviewed: Yes Review of Systems Review of Systems Constitutional: see HPI; No chills, No fever Cardiovascular: See HPI, Chest Pain Musculoskeletal: see HPI, back pain All Other Systems Reviewed Negative Unless Noted: Yes Past Gqwaxtd-Pgaynw-Tmxhgg Hx Past Med/Social Hx: Reviewed Nursing Past Med/Soc Hx Patient Social History Alcohol Use: Denies Use Recreational Drug Use: No Recent Foreign Travel: No (N) Contact w/Someone Who Travel: No Recent Infectious Disease Expo: No Recent Hopitalizations: No Immunizations Up To Date Tetanus Booster (TDap): Less than 5yrs PED Vaccines UTD: Yes Date of Influenza Vaccine: Jan 14, 2015 Seasonal Allergies Seasonal Allergies: Yes (ALLERGY SHOTS WKLY) Past Medical History Surgeries: Yes (right shoulder surgery 2004, left knee scope 2008, left knee scope 2009,) Gallbladder, Orthopedic, Tonsillectomy Respiratory: Yes Asthma Cardiac: No Neurological: No : No (4 WEEKS POST ) Reproductive Disorders: No Female Reproductive Disorders: Denies Sexually Transmitted Disease: No HIV/AIDS: No Genitourinary: No Gastrointestinal: No Musculoskeletal: No Endocrine: No Loss of Vision: Denies Cancer: No Psychosocial: No Integumentary: No Blood Disorders: No Adverse Reaction/Blood Tranf: No Family Medical History Reviewed Nursing Family Hx Asthma 19 FATHER, Age:49, Onset:Unknown 19 MOTHER, Age:43, Onset:Unknown Cardiovascular disease 19 MOTHER, Age:43, Onset:40's - 50 Hypertension 19 MOTHER, Age:43, Onset:15's - 20 G8 SISTER, Onset:Unknown Kidney disease G8 SISTER, Onset:Unknown No Family History of: AIDS Asthma, Heart Disease, Hypertension Physical Exam Vital Signs Capillary Refill : Less Than 3 Seconds Height, Weight, BMI Height: 5'2.00" Weight: 230lbs. 2.0oz. 104.207776yr; 42.1 BMI Method:Stated General Appearance: No Apparent Distress, WD/WN Neck: Full Range of Motion, Normal Inspection, Non Tender Respiratory: Chest Non Tender, Lungs Clear, Normal Breath Sounds, No Accessory Muscle Use, No Respiratory Distress Cardiovascular: Regular Rate, Rhythm, No Edema, No Gallop, No JVD, No Murmur, Normal Peripheral Pulses Gastrointestinal: Normal Bowel Sounds, No Organomegaly, No Pulsatile Mass, Non Tender Neurologic/Psychiatric: Alert, Oriented x3, Normal Mood/Affect Skin: Normal Color, Warm/Dry Progress/Results/Core Measures Results/Orders Lab Results Laboratory Tests Test 12/10/17 17:00 12/10/17 19:07 Range/Units White Blood Count 13.2 H 4.3-11.0 10^3/uL Red Blood Count 4.92 4.35-5.85 10^6/uL Hemoglobin 13.4 11.5-16.0 G/DL Hematocrit 41 35-52 % Mean Corpuscular Volume 84 80-99 FL Mean Corpuscular Hemoglobin 27 25-34 PG Mean Corpuscular Hemoglobin Concent 32 32-36 G/DL Red Cell Distribution Width 14.8 H 10.0-14.5 % Platelet Count 339 130-400 10^3/uL Mean Platelet Volume 10.1 7.4-10.4 FL Neutrophils (%) (Auto) 58 42-75 % Lymphocytes (%) (Auto) 19 12-44 % Monocytes (%) (Auto) 7 0-12 % Eosinophils (%) (Auto) 15 H 0-10 % Basophils (%) (Auto) 1 0-10 % Neutrophils # (Auto) 7.7 1.8-7.8 X 10^3 Lymphocytes # (Auto) 2.5 1.0-4.0 X 10^3 Monocytes # (Auto) 1.0 0.0-1.0 X 10^3 Eosinophils # (Auto) 2.0 H 0.0-0.3 10^3/uL Basophils # (Auto) 0.1 0.0-0.1 10^3/uL Neutrophils % (Manual) 57 % Lymphocytes % (Manual) 16 % Monocytes % (Manual) 7 % Eosinophils % (Manual) 19 % Basophils % (Manual) 1 % Band Neutrophils 0 % Blood Morphology Comment NORMAL Prothrombin Time 12.2 12.2-14.7 SEC INR Comment 0.9 0.8-1.4 Activated Partial Thromboplast Time 23 L 24-35 SEC D-Dimer 0.54 H 0.00-0.49 UG/ML Sodium Level 141 135-145 MMOL/L Potassium Level 4.0 3.6-5.0 MMOL/L Chloride Level 104 98-107 MMOL/L Carbon Dioxide Level 25 21-32 MMOL/L Anion Gap 12 5-14 MMOL/L Blood Urea Nitrogen 11 7-18 MG/DL Creatinine 0.73 0.60-1.30 MG/DL Estimat Glomerular Filtration Rate > 60 BUN/Creatinine Ratio 15 Glucose Level 81 70-105 MG/DL Calcium Level 9.9 8.5-10.1 MG/DL Corrected Calcium 9.7 8.5-10.1 MG/DL Magnesium Level 2.2 1.8-2.4 MG/DL Total Bilirubin 0.3 0.1-1.0 MG/DL Aspartate Amino Transf (AST/SGOT) 62 H 5-34 U/L Alanine Aminotransferase (ALT/SGPT) 72 H 0-55 U/L Alkaline Phosphatase 109 40-136 U/L Myoglobin 18.2 10.0-92.0 NG/ML Troponin I < 0.30 < 0.30 <0.30 NG/ML Total Protein 6.9 6.4-8.2 GM/DL Albumin 4.2 3.2-4.5 GM/DL TSH Liguori Testing 1.15 0.35-4.94 UIU/ML My Orders Orders - ARNOLDO CAMEJO Cbc With Automated Diff (12/10/17 16:48) Magnesium (12/10/17 16:48) Chest 1 View, Ap/Pa Only (12/10/17 16:48) Ekg Tracing (12/10/17 16:48) Cardiac Profile 1 (12/10/17 16:48) Comprehensive Metabolic Panel (12/10/17 16:48) Myoglobin Serum (12/10/17 16:48) Protime With Inr (12/10/17 16:48) Partial Thromboplastin Time (12/10/17 16:48) O2 (12/10/17 16:48) Monitor-Rhythm Ecg Trace Only (12/10/17 16:48) Saline Lock/Iv-Start (12/10/17 16:48) Fibrin Degradation Products (12/10/17 16:48) Manual Differential (12/10/17 17:00) Ct Angio Chest W (12/10/17 17:47) Thyroid Analyzer (12/10/17 17:47) Iohexol Injection (Omnipaque 350 Mg/Ml 1 (12/10/17 18:00) Sodium Chloride Flush (Catheter Flush Sy (12/10/17 18:00) Ns (Ivpb) (Sodium Chloride 0.9%) (12/10/17 18:00) Pharmacy Communication (Pharmacy Communi (12/10/17 17:56) Troponin I (12/10/17 19:03) Medications Given in ED Vital Signs/I&O Blood Pressure Mean: 116 Progress Progress Note : Time: 17:45 Progress Note I have informed her of the need for a CT of her chest and she agrees with plan for the scan. 1913: I have informed her of normal imaging studies and normal laboratory studies. She agrees with plans of care, return precautions were given. EKG : EKG Time: 17:17 Rate: 79 Rhythm: Normal Sinus Intervals: Normal ECG Comparisson: No Previous ECG Available ECG Impression: Normal Diagnostic Imaging Diagonstic Imaging: Xray, CT Plain Films/CT/US/NM/MRI: chest Comments NAME: RAUL GALLO [facility] REC#: [id number] PHYSICIAN: ARNOLDO CAMEJO CC: ARNOLDO CAMEJO; PARIS AUGUSTIN MD Page 1 of 1 RADIOLOGY REPORT VIA [place], [place] CC: PATRICIA CAMEJO STEPHEN D MD Page 1 of 1 RADIOLOGY REPORT NAME: RAUL GALLO [facility] REC#: [id number] PT STATUS: DEP ER : 1990 PHYSICIAN: ARNOLDO CAMEJO ADMIT DATE: 12/10/17/ER Signed Date of Exam: 12/10/17 CT ANGIO CHEST W PROCEDURE: CT angiography of the chest with contrast. TECHNIQUE: Multiple contiguous axial images were obtained through the chest after uneventful bolus administration of intravenous contrast. 2D reconstructed CTA MIP acquisitions were also performed. INDICATION: Status post delivery four weeks ago. Patient now complains of chest pain and back pain with pain between the shoulder blades. COMPARISON: No prior studies are available for comparison. FINDINGS: The thoracic aorta is normal caliber. No dissection is identified. No periaortic fluid collection is seen. Central pulmonary arteries are unremarkable. No pericardial or pleural fluid is detected. No pulmonary infiltrates, nodules, or masses are seen. The upper abdomen is unremarkable. IMPRESSION: Unremarkable CT angiogram of the chest. There are no findings to suggest thoracic aortic dissection. Dictated by: Dictated on workstation # [id number] Dict: 12/10/17 183 Trans: 12/10/172099 Interpreted by: PARIS AUGUSTIN MD Electronically signed by: PARIS AUGUSTIN MD 12/10/172099 NAME: RAUL GALLO [facility] REC#: [id number] PHYSICIAN: ARNOLDO CAMEJO CC: PATRICIA CAMEJO STEPHEN D MD Page 1 of 1 RADIOLOGY REPORT VIA [facility]. [place], [place] CC: ARNOLDO CAMEJO; PARIS AUGUSTIN MD Page 1 of 1 RADIOLOGY REPORT NAME: RAUL GALLO [facility] REC#: [id number] PT STATUS: DEP ER : 1990 PHYSICIAN: ARNOLDO CAMEJO [employer] ADMIT DATE: 12/10/17/ER Signed Date of Exam: 12/10/17 CHEST 1 VIEW, AP/PA ONLY INDICATION: Chest pain. TIME OF EXAM: 05:31 p.m. COMPARISON: Comparison is made with prior study of 02/24/2013. FINDINGS: The heart size is normal. The pulmonary vascularity is unremarkable. The lungs are clear. No infiltrate, effusion or pneumothorax is detected. IMPRESSION: No acute cardiopulmonary process is detected. Dictated by: Dictated on workstation # [id number] Dict: 12/10/17 1738 Trans: 12/10/17 2100 Interpreted by: PARIS AUGUSTIN MD Electronically signed by: PARIS AUGUSTIN MD 12/10/17 2100 Reviewed: Reviewed by Me Departure Impression Primary Impression: Chest pain Disposition: 01 HOME, SELF-CARE Condition: Stable/Unchanged Departure-Patient Inst. Decision time for Depature: 19:13 Referrals: JANET LONDONO MD (PCP/Family) Primary Care Physician Patient Instructions: Chest Pain That Is Not Caused by the Heart (DC), Chest Pain (DC) Add. Discharge Instructions: 1. Follow up with your primary care provider within 1 week for recheck. 2. Return back to the emergency room for any worsening symptoms or concerns as needed. All discharge instructions reviewed with patient and/or family. Voiced understanding. ARNOLDO CAMEJO Dec 10, 2017 17:07
[2017-12-10 17:11] LABS: BASOPHILS # (AUTO) 0.1 10^3/uL (0.0-0.1); BASOPHILS % (AUTO) 1 % (0-10); EOSINOPHILS % (AUTO) 15 % (0-10); HEMATOCRIT 41 % (35-52); HEMOGLOBIN 13.4 G/DL (11.5-16.0); LYMPHOCYTES # (AUTO) 2.5 X 10^3 (1.0-4.0); LYMPHOCYTES % (AUTO) 19 % (12-44); MEAN CORPUSCULAR HEMOGLOBIN 27 PG (25-34); MEAN CORPUSCULAR HGB CONC 32 G/DL (32-36); MEAN CORPUSCULAR VOLUME 84 FL (80-99); MEAN PLATELET VOLUME 10.1 FL (7.4-10.4); MONOCYTES % (AUTO) 7 % (0-12); NEUTROPHILS # (AUTO) 7.7 X 10^3 (1.8-7.8); NEUTROPHILS % (AUTO) 58 % (42-75); PLATELET COUNT 339 10^3/uL (130-400); RED BLOOD COUNT 4.92 10^6/uL (4.35-5.85); RED CELL DISTRIBUTION WIDTH 14.8 % (10.0-14.5); WHITE BLOOD COUNT 13.2 10^3/uL (4.3-11.0)
--- OUTSIDE RECORDS SUMMARY | 2017-12-10 17:19 | XMS REPORT | Continuity of Care Document ---
Author Author [facility] Address Unknown Phone Unavailable Allergies Active Description Code Type Severity Reaction Onset Reported/Identified Relationship to Patient Clinical Status Yes No Known Drug Allergies [id number] Drug Allergy Unknown N/A 05/15/2012 Medications There [...] 10/29/2013 YU RADHA COBOS Ot 642.31 10/29/2013 UPTON DORADHA Ot 643.91 10/29/2013 YU RADHA COBOS Ot 787.91 10/29/2013 UPTON DORADHA Ot V06.1 10/29/2013 UPTON DORADHA Ot V06.4 10/29/2013 YU RADHA COBOS [...] ALLERGY UNSPECIFIED NOT ELSEWHERE CLASSIFIED 04/08/2014 CHATO TECHNICAL SPEC, GILDA R 995.3 ALLERGY UNSPECIFIED NOT ELSEWHERE CLASSIFIED 04/25/2014 CHATO TECHNICAL SPEC, GILDA R 372.30 CONJUNCTIVITIS UNSPECIFIED 04/25/2014 CHATO TECHNICAL SPEC, GILDA R 461.9 SINUSITIS ACUTE 04/25/2014 CHATO TECHNICAL SPEC, GILDA R 462 ACUTE PHARYNGITIS 01/31/2015 YU [...] RASH AND OTHER NONSPECIFIC SKIN ERUPTION 06/30/2017 AIMEE COBOSRADHA Ot Z34.92 ENCNTR FOR SUPRVSN OF NORMAL PREG, UNSP, 06/30/2017 AIMEE COBOSRADHA Ot Z3A.19 19 WEEKS GESTATION OF 06/30/2017 AIMEE RADHA COBOS Ot Z34.92 ENCNTR FOR SUPRVSN OF NORMAL PREG, UNSP, 06/30/2017 AIMEE COBOSRADHA Ot Z3A.19 19 WEEKS GESTATION OF 07/30/2017 YU DORADHA Ot Z34.92 ENCNTR FOR SUPRVSN OF NORMAL PREG, UNSP, 07/30/2017 YU DORADHA Ot Z3A.19 19 WEEKS GESTATION OF 11/09/2017 YURADHA Waller DO Ot Z34.92 ENCNTR FOR SUPRVSN OF NORMAL PREG, UNSP, 11/09/2017 YU RADHA Ot Z3A.19 19 WEEKS GESTATION OF 11/11/2017 RADHA YU DO Ot O13.4 GESTATNL HTN WITHOUT SIGNIFICANT PROTEIN 11/11/2017 YURADHA Waller DO Ot O80 ENCOUNTER FOR FULL-TERM UNCOMPLICATED DE 11/11/2017 RADHA YU DO Ot Z37.0 SINGLE LIVE 11/11/2017 RADHA YU DO Ot Z3A.39 39 WEEKS GESTATION OF Procedures Code Description [place] [address] IMMUNOTHERAPY INJECTIONS 04/18/2014 84486 IMMUNOTHERAPY INJECTIONS 04/25/2014 [id number] DELIVERY OF PRODUCTS OF CONCEPTION, EXTE 11/10/2017 Results Test Result Range Complete urinalysis with reflex to culture - 11/09/17 12:30 Urine color determination YELLOW NRG Urine clarity determination CLEAR NRG Urine pH measurement by test strip 7 5-9 Specific gravity of urine by test strip 1.010 1.016- 1.022 Urine protein assay by test strip, semi-quantitative NEGATIVE NEGATIVE Urine glucose detection by automated test strip NEGATIVE NEGATIVE Erythrocytes detection in urine sediment by light microscopy NEGATIVE NEGATIVE Urine ketones detection by automated test strip 2+ NEGATIVE Urine nitrite detection by test strip NEGATIVE NEGATIVE Urine total bilirubin detection by test strip NEGATIVE NEGATIVE Urine urobilinogen measurement by automated test strip (mass/volume) NORMAL NORMAL Urine leukocyte esterase detection by dipstick NEGATIVE NEGATIVE Automated urine sediment erythrocyte count by microscopy (number/high power field) RARE NRG Automated urine sediment leukocyte count by microscopy (number/high power field ) RARE NRG Bacteria detection in urine sediment by light microscopy NEGATIVE NRG Squamous epithelial cells detection in urine sediment by light microscopy 0-2 NRG Crystals detection in urine sediment by light microscopy NONE NRG Casts detection in urine sediment by light microscopy NONE NRG Mucus detection in urine sediment by light microscopy NEGATIVE NRG Complete urinalysis with reflex to culture NO NRG Urine protein/creatinine mass ratio - 11/09/17 12:30 Urine protein measurement (mass/volume) < mg/dL 6-12 Urine creatinine measurement (mass/volume) 29 mg/dL 30- 125 Urine protein/creatinine mass ratio TNP NRG Complete blood count (CBC) with automated white blood cell (WBC) differential - 11/09/17 12:45 Blood leukocytes automated count (number/volume) 12.7 10*3/uL 4.3-11.0 Blood erythrocytes automated count (number/volume) 4.38 10*6/uL 4.35-5.85 Venous blood hemoglobin measurement (mass/volume) 12.2 g/dL 11.5-16.0 Blood hematocrit (volume fraction) 36 % 35-52 Automated erythrocyte mean corpuscular volume 83 [foz_us] 80-99 Automated erythrocyte mean corpuscular hemoglobin (mass per erythrocyte) 28 pg 25-34 Automated erythrocyte mean corpuscular hemoglobin concentration measurement ( mass/volume) 34 g/dL 32-36 Automated erythrocyte distribution width ratio 14.8 % 10.0-14.5 Automated blood platelet count (count/volume) 305 10*3/uL 130-400 Automated blood platelet mean volume measurement 10.5 [foz_us] 7.4-10.4 Automated blood neutrophils/100 leukocytes 72 % 42-75 Automated blood lymphocytes/100 leukocytes 19 % 12-44 Blood monocytes/100 leukocytes 8 % 0-12 Automated blood eosinophils/100 leukocytes 1 % 0-10 Automated blood basophils/100 leukocytes 0 % 0-10 Blood neutrophils automated count (number/volume) 9.1 10*3 1.8-7.8 Blood lymphocytes automated count (number/volume) 2.4 10*3 1.0-4.0 Blood monocytes automated count (number/volume) 1.0 10*3 0.0-1.0 Automated eosinophil count 0.2 10*3/uL 0.0-0.3 Automated blood basophil count (count/volume) 0.0 10*3/uL 0.0-0.1 Blood type T Indirect antibody screen panel - 11/09/17 12:45 ABO+Rh group AN [facility] Transfusion band number [id number] [facility] Blood group antibody screen NEGATIVE [facility] Comprehensive metabolic panel - 11/09/17 13:20 Serum or plasma sodium measurement (moles/volume) 136 mmol/L 135-145 Serum or plasma potassium measurement (moles/volume) 4.5 mmol/L 3.6-5.0 Serum or plasma chloride measurement (moles/volume) 107 mmol/L 98-107 Carbon dioxide 17 mmol/L 21-32 Serum or plasma anion gap determination (moles/volume) 12 mmol/L 5-14 Serum or plasma urea nitrogen measurement (mass/volume) 6 mg/dL 7-18 Serum or plasma creatinine measurement (mass/volume) 0.56 mg/dL 0.60-1.30 Serum or plasma urea nitrogen/creatinine mass ratio 11 [facility] Serum or plasma creatinine measurement with calculation of estimated glomerular filtration rate > [facility] Serum or plasma glucose measurement (mass/volume) 73 mg/dL 70-105 Serum or plasma calcium measurement (mass/volume) 9.5 mg/dL 8.5-10.1 Serum or plasma total bilirubin measurement (mass/volume) 0.4 mg/dL 0.1-1.0 Serum or plasma alkaline phosphatase measurement (enzymatic activity/volume) 112 U/L 40-136 Serum or plasma aspartate aminotransferase measurement (enzymatic activity/ volume) 25 U/L 5-34 Serum or plasma alanine aminotransferase measurement (enzymatic activity/volume ) 15 U/L 0-55 Serum or plasma protein measurement (mass/volume) 7.0 g/dL 6.4-8.2 Serum or plasma albumin measurement (mass/volume) 3.4 g/dL 3.2-4.5 CALCIUM CORRECTED 10.0 mg/dL 8.5-10.1 Serum or plasma uric acid measurement (mass/volume) - 11/09/17 13:20 Serum or plasma uric acid measurement (mass/volume) 4.1 mg/dL 2.6-7.2 Lactate dehydrogenase 1 [enzymatic activity/volume] in serum or plasma - 13:20 Lactate dehydrogenase 1 [enzymatic activity/volume] in serum or plasma 267 U/L 125-220 Encounters ACCT No. Visit Date/Time Discharge Status Pt. Type Provider Facility Loc./Unit Complaint [id number] 04/25/2014 16:37:00 04/25/2014 23:59:59 CLS Outpatient GILDA REIS APRN [id number] 04/18/2014 16:56:00 04/18/2014 23:59:59 CLS Outpatient NAS FERMIN DO [id number] 12/29/2013 15:05:00 12/29/2013 23:59:59 CLS Outpatient UMBERTO ENG APRN [id number] 03/30/2012 14:16:00 03/30/2012 23:59:59 CLS Outpatient NAS FERMIN DO [facility] 01/31/2014 07:42:07 ACT Document Registration [id number] 11/09/2017 11:00:00 11/11/2017 13:10:00 DIS Outpatient RADHA YU DO [facility] LDRP LABOR [id number] 06/29/2017 16:41:00 06/29/2017 23:59:59 CLS Outpatient RADHA YU DO [facility] RAD Z34.92 2ND TRIMESTER [id number] 12/30/2015 17:58:00 12/30/2015 19:24:00 DIS Emergency JANET MAE DO [facility] ER FACIAL SWELLING/REDNESS [id number] 10/04/2015 10:00:00 10/04/2015 23:59:59 CLS Outpatient RADHA YU DO [facility] RAD BREAST LUMP [id number] 05/22/2015 08:24:00 05/24/2015 12:50:00 DIS Inpatient RADHA YU DO [facility] LDRP [id number] 05/02/2015 19:54:00 05/02/2015 22:53:00 DIS Outpatient BISI VELASQUEZ, ENZO Danielle [facility] WSo CTXS;ABD PAIN [id number] 01/29/2015 14:37:00 01/29/2015 23:59:59 CLS Outpatient RADHA YU DO [facility] RAD [id number] 01/31/2014 07:31:00 01/31/2014 09:32:00 DIS Emergency ADRIANA VELASQUEZ, ERNA Sinclair [facility] ER [id number] 12/19/2013 06:00:00 12/19/2013 13:25:00 DIS Outpatient CLAIRE PRADO DO [facility] [id number] 12/13/2013 10:24:00 12/13/2013 23:59:59 CLS Outpatient CLAIRE PRADO DO [facility] PREOP [id number] 10/26/2013 19:18:00 10/29/2013 21:00:00 DIS Inpatient RADHA YU DO Sriram [facility] LDRP [id number] 10/22/2013 11:23:00 10/22/2013 23:59:59 CLS Outpatient ASIADIALLO MUNOZ DO S [facility] LAB [id number] 10/21/2013 09:47:00 10/21/2013 12:50:00 DIS Outpatient DIALLO AYON DO S [facility] WSo [id number] 02/24/2013 09:12:00 02/24/2013 12:33:00 DIS Emergency CARMELLA ARMENDARIZ MD [facility] ER [id number] 01/31/2014 09:54:00 Document Registration [id number] 05/15/2012 09:15:00 Document Registration
[2017-12-10 17:23] LABS: INR 0.9 (0.8-1.4); PROTHROMBIN TIME PATIENT 12.2 SEC (12.2-14.7)
[2017-12-10 17:28] LABS: BAND NEUTROPHILS 0 %; BASOPHILS % (MANUAL) 1 %; EOSINOPHILS % (MANUAL) 19 %; LYMPHOCYTES % (MANUAL) 16 %; MONOCYTES % (MANUAL) 7 %; NEUTROPHILS % (MANUAL) 57 %; RBC MORPH NORMAL
[2017-12-10 17:30] LABS: ALANINE AMINOTRANSFERASE 72 U/L (0-55); ALBUMIN 4.2 GM/DL (3.2-4.5); ALKALINE PHOSPHATASE 109 U/L (40-136); BILIRUBIN,TOTAL 0.3 MG/DL (0.1-1.0); BUN/CREATININE RATIO 15; CALCIUM 9.9 MG/DL (8.5-10.1); CARBON DIOXIDE 25 MMOL/L (21-32); CHLORIDE 104 MMOL/L (98-107); CREATININE SERUM 0.73 MG/DL (0.60-1.30); GFR ESTIMATED > 60; GLUCOSE 81 MG/DL (70-105); MAGNESIUM 2.2 MG/DL (1.8-2.4); SODIUM 141 MMOL/L (135-145); TOTAL PROTEIN 6.9 GM/DL (6.4-8.2)
[2017-12-10 17:37] LABS: MYOGLOBIN SERUM 18.2 NG/ML (10.0-92.0)
--- NOTE | 2017-12-10 17:41 | Diagnostic Imaging Report ---
INDICATION: Chest pain. TIME OF EXAM: 05:31 p.m. COMPARISON: Comparison is made with prior study of 02/24/2013. FINDINGS: The heart size is normal. The pulmonary vascularity is unremarkable. The lungs are clear. No infiltrate, effusion or pneumothorax is detected. IMPRESSION: No acute cardiopulmonary process is detected. Dictated by: Dictated on workstation # [id number]
[2017-12-10] MEDS: CATHETER FLUSH 10 ML SYR IV PRN (18:30)
[2017-12-10] MEDS: NS 250 ML (IVPB) BAG IV ONE (18:30)
[2017-12-10] MEDS: IOHEXOL 350 MG/ML 150 ML (OMNIPAQUE 350) VIAL IV ONE (18:30)
--- NOTE | 2017-12-10 18:45 | Diagnostic Imaging Report ---
PROCEDURE: CT angiography of the chest with contrast. TECHNIQUE: Multiple contiguous axial images were obtained through the chest after uneventful bolus administration of intravenous contrast. 2D reconstructed CTA MIP acquisitions were also performed. INDICATION: Status post delivery four weeks ago. Patient now complains of chest pain and back pain with pain between the shoulder blades. COMPARISON: No prior studies are available for comparison. FINDINGS: The thoracic aorta is normal caliber. No dissection is identified. No periaortic fluid collection is seen. Central pulmonary arteries are unremarkable. No pericardial or pleural fluid is detected. No pulmonary infiltrates, nodules, or masses are seen. The upper abdomen is unremarkable. IMPRESSION: Unremarkable CT angiogram of the chest. There are no findings to suggest thoracic aortic dissection. Dictated by: Dictated on workstation # [id number]
[2017-12-10 19:53] VITALS: BP 131/69
== END 2017-12-10 19:53 | disposition home or self-care (01) ==
LOC: EDUNIT# 15:18 → ER 15:19
DX: R07.89 Other chest pain (principal); J45.909 Unspecified asthma, uncomplicated; Z82.49 Family history of ischemic heart disease and other diseases of the circulatory system; Z90.89 Acquired absence of other organs
CPT/HCPCS: 36415; 71045; 71275; 80053; 83735; 83874; 84443; 84484; 85007; 85027; 85379; 85610; 85730; 93005; 93041

== ENCOUNTER → 2019-10-27 | Outpatient (CLI) | payer OTHER ==
[~2019-10-27] MED LIST changes: -MOME15CR17 TP; +MOME15CR8 TP
== END ==
LOC: LABNPT 07:17
PROVIDERS: ATTEND Family Medicine
DX: Z20.828 Contact with and (suspected) exposure to other viral communicable diseases (principal); Z86.19 Personal history of other infectious and parasitic diseases
CPT/HCPCS: 87635

== ENCOUNTER → 2020-05-22 | Outpatient (CLI) | payer OTHER | LOC: WSo 15:19 | PROVIDERS: ATTEND Obstetrics & Gynecology | DX: O26.859 Spotting complicating pregnancy, unspecified trimester (principal); Z3A.00 Weeks of gestation of pregnancy not specified | CPT/HCPCS: 36415; 84702 ==

== ENCOUNTER → 2020-05-24 | Outpatient (CLI) | payer OTHER | LOC: LABNPT 13:39 | PROVIDERS: ATTEND Obstetrics & Gynecology | DX: O20.0 Threatened abortion (principal); Z3A.00 Weeks of gestation of pregnancy not specified | CPT/HCPCS: 84702 ==

== ENCOUNTER → 2020-09-21 | Outpatient (CLI) | payer BC, OTHER ==
--- NOTE | 2020-09-21 13:55 | Diagnostic Imaging Report ---
INDICATION: survey. TECHNIQUE: Multiple real-time grayscale images were obtained over the gravid uterus. COMPARISON: None FINDINGS: There is a single live fetus in a variable presentation. heart rate was recorded at 153 BPM. Placenta is anterior. Amniotic fluid volume is normal. Cervical length is 5.4 cm. survey shows kidneys, bladder, and stomach to be unremarkable. brain is unremarkable. There is a four-chamber heart. There is a three-vessel cord with normal insertion. spine is unremarkable. Biometrical measurements are as follows: Biparietal 5.04 cm, age 21 weeks 1 days. Head circumference 19.98 cm, age 21 weeks 2 days. Abdominal circumference 15.68 cm, age 20 weeks 1 days. Femur length 3.66 cm, age 21 weeks 5 days. Sonographic estimate age: 21 weeks 2 days. Sonographic estimated date of delivery: 01/30/21. Estimated Weight: 407 gm (+/- 59 gm). LMP percentile: 33%. heart rate: 153 beats per minute. number: 1 of 1. IMPRESSION: Single live IUP of 21 weeks 2 days gestational age identified. Date of confinement sonographically is 01/30/2021. No complicating features. Dictated by: Dictated on workstation # [id number]
== END ==
LOC: RAD 12:00
PROVIDERS: ATTEND Obstetrics & Gynecology
DX: Z36.9 Encounter for antenatal screening, unspecified (principal); Z3A.21 21 weeks gestation of pregnancy
CPT/HCPCS: 76805

== ENCOUNTER → 2021-01-14 | Outpatient (CLI) | payer BC | LOC: LABNPT 09:42 | PROVIDERS: ATTEND Obstetrics & Gynecology | DX: R03.0 Elevated blood-pressure reading, without diagnosis of hypertension (principal) | CPT/HCPCS: 82570; 84156 ==

== ENCOUNTER 2021-01-15 14:48 | Outpatient (CLI) | payer BC ==
[~2021-01-15] VITALS: Ht 160 cm; Wt 110.1 kg
[2021-01-15] VITALS (11 sets, daily range): BP systolic 135–160; BP diastolic 69–88
[2021-01-15 15:36] LABS: BILIRUBIN,URINE NEGATIVE (NEGATIVE); CLARITY,URINE CLEAR; COLOR,URINE YELLOW; GLUCOSE, URINE (UA) NEGATIVE (NEGATIVE); KETONES,URINE NEGATIVE (NEGATIVE); LEUKOCYTE ESTERASE ,URINE NEGATIVE (NEGATIVE); NITRITE,URINE NEGATIVE (NEGATIVE); PROTEIN,URINE NEGATIVE (NEGATIVE)
[2021-01-15 15:55] LABS: BACTERIA,URINE NEGATIVE /HPF
[2021-01-15 16:10] LABS: BASOPHILS # (AUTO) 0.1 10^3/uL (0.0-0.1); BASOPHILS % (AUTO) 1 % (0-10); EOSINOPHILS # (AUTO) 0.3 10^3/uL (0.0-0.3); EOSINOPHILS % (AUTO) 3 % (0-10); HEMATOCRIT 39 % (35-52); HEMOGLOBIN 12.8 g/dL (11.5-16.0); LYMPHOCYTES # (AUTO) 2.6 10^3/uL (1.0-4.0); LYMPHOCYTES % (AUTO) 26 % (12-44); MEAN CORPUSCULAR HEMOGLOBIN 28 pg (25-34); MEAN CORPUSCULAR HGB CONC 33 g/dL (32-36); MEAN CORPUSCULAR VOLUME 85 fL (80-99); MEAN PLATELET VOLUME 10.8 fL (9.0-12.2); MONOCYTES # (AUTO) 1.1 10^3/uL (0.0-1.0); MONOCYTES % (AUTO) 11 % (0-12); NEUTROPHILS % (AUTO) 59 % (42-75); PLATELET COUNT 264 10^3/uL (130-400); WHITE BLOOD COUNT 10.2 10^3/uL (4.3-11.0)
[2021-01-15 16:25] LABS: ALBUMIN 3.3 GM/DL (3.2-4.5); BILIRUBIN,TOTAL 0.4 MG/DL (0.1-1.0); CALCIUM 8.8 MG/DL (8.5-10.1); CREATININE SERUM 0.5 MG/DL (0.60-1.30); POTASSIUM 4.1 MMOL/L (3.6-5.0); TOTAL PROTEIN 6.4 GM/DL (6.4-8.2); URIC ACID 4.2 MG/DL (2.6-7.2)
[2021-01-15 18:10] LABS: URINE CREATININE FOR RATIO 15 MG/DL (30-125); URINE PROTEIN FOR RATIO ONLY < 6 MG/DL (6-12)
[2021-01-15] MEDS ORDERED: D5 LR IV SOLUTION 1,000 ML IV ONE (18:28)
[2021-01-15] MEDS ORDERED: D5 LR IV SOLUTION 1,000 ML IV SCH (18:30)
--- NOTE | 2021-01-16 08:29 | Physician Query-Final Dx ---
KATHY CRUZ 01/16/21 0829: Clinic Account Progress/Dx Physician Query: Please give diagnosis Please include # weeks gestation Date of Service Jan 15, 2021 at 14:48 HUI SONI MD 01/16/21 1711: Clinic Account Progress/Dx DIAGNOSIS: Diagnosis False labor at 38 weeks gestation KATHY CRUZ Jan 16, 2021 08:29 HUI SONI MD Jan 16, 2021 17:11
== END 2021-01-15 20:34 | disposition home or self-care (01) ==
LOC: WSo 14:48 → LDRP 14:50 → WSo 20:34
PROVIDERS: ATTEND Obstetrics & Gynecology
DX: O47.1 False labor at or after 37 completed weeks of gestation (principal); Z3A.38 38 weeks gestation of pregnancy
CPT/HCPCS: 36415; 80053; 81000; 82570; 83615; 84156; 84550; 85025

== ENCOUNTER → 2021-01-21 | Outpatient (CLI) | payer BC ==
[2021-01-21 16:08] LABS: URINE CREATININE FOR RATIO 12 MG/DL (30-125)
[2021-01-21 16:09] LABS: URINE PROTEIN FOR RATIO ONLY < 6 MG/DL (6-12)
== END ==
LOC: LABNPT 15:22
PROVIDERS: ATTEND Family Medicine
DX: R03.0 Elevated blood-pressure reading, without diagnosis of hypertension (principal)
CPT/HCPCS: 82570; 84156

== ENCOUNTER 2021-01-25 08:06 | Inpatient (IN) | payer BC ==
[2021-01-25] VITALS (31 sets, daily range): BP systolic 131–193; BP diastolic 66–93
[~2021-01-25] VITALS: Ht 160 cm; Wt 111.2 kg
[~2021-01-25 08:06] MED LIST changes: +CYCL10TA25 PO; -CYCL10TA9 PO
[2021-01-25] MEDS ORDERED: MINERAL OIL CONCENTRATE 99.9% 15 ML UDC TOP PRN (08:30)
[2021-01-25] MEDS ORDERED: D5 LR IV SOLUTION 1,000 ML IV SCH (08:30)
[2021-01-25 09:13] LABS: BASOPHILS # (AUTO) 0.1 10^3/uL (0.0-0.1); BASOPHILS % (AUTO) 1 % (0-10); EOSINOPHILS # (AUTO) 0.3 10^3/uL (0.0-0.3); EOSINOPHILS % (AUTO) 3 % (0-10); HEMATOCRIT 39 % (35-52); HEMOGLOBIN 12.6 g/dL (11.5-16.0); LYMPHOCYTES # (AUTO) 2.2 10^3/uL (1.0-4.0); LYMPHOCYTES % (AUTO) 18 % (12-44); MEAN CORPUSCULAR HEMOGLOBIN 28 pg (25-34); MEAN CORPUSCULAR HGB CONC 32 g/dL (32-36); MEAN CORPUSCULAR VOLUME 86 fL (80-99); MEAN PLATELET VOLUME 10.9 fL (9.0-12.2); MONOCYTES # (AUTO) 0.8 10^3/uL (0.0-1.0); MONOCYTES % (AUTO) 7 % (0-12); NEUTROPHILS # (AUTO) 8.7 10^3/uL (1.8-7.8); NEUTROPHILS % (AUTO) 72 % (42-75); PLATELET COUNT 268 10^3/uL (130-400); WHITE BLOOD COUNT 12.1 10^3/uL (4.3-11.0)
--- NOTE | 2021-01-25 10:04 | History & Physical-OB ---
OB - Chief Complaint & HPI Date/Time Date of Admission: Date of Admission: Jan 25, 2021 at 08:06 Time Seen by a Provider: 09:00 Chief Complaint/History OB-Reason for Admission/Chief: Induction of Labor (gestational hypertension) Hx : 5 Hx Para: 3 Expected Date of Delivery: Jan 29, 2021 Gestational Age in Weeks: 39 Gestational Age in Days: 3 Indication for induction: medical complication (gestational hypertension) Allergies and Home Medications Allergies Coded Allergies: No Known Drug Allergies (Unverified , 05/15/12) Patient Home Medication List Vit#96/Ferrous Fum/Fa ( Tablet) 1 Each Tablet, 1 TAB PO DAILY, (Reported) Entered as Reported by: LUIS MANUEL ROLLINS on 12/13/13 2872 OB - History Obstetrical History Hx Termination: No Hx Multiple Gestation: No Hx Stillbirth: No Hx Complication: No Hx Induced Hypertens: No Hx Maternal Gestational Diabet: No Delivery History Hx Dystocia: No Hx Large For Gestational Age I: No Hx Small for Gestational Age I: No Hx Section: No Hx Vaginal Delivery Post C-Sec: No Hx Blood Disorders: No Adverse Rxn to Tranfusion: No Patient Past Medical History NC Immunizations Hepatitis A: No Hepatitis B: Yes Tetanus Booster (TDap): Less than 5yrs Date of Influenza Vaccine: Dec 20, 2020 OB - Admission Exam Physical Exam Vitals: Vital Signs 01/25/21 08:40 Temp 36.7 Pulse 98 Resp 17 Pulse Ox 99 O2 Delivery Room Air Labs Laboratory Tests Test 01/25/21 09:00 Range/Units White Blood Count 12.1 H 4.3-11.0 10^3/uL Red Blood Count 4.50 3.80-5.11 10^6/uL Hemoglobin 12.6 11.5-16.0 g/dL Hematocrit 39 35-52 % Mean Corpuscular Volume 86 80-99 fL Mean Corpuscular Hemoglobin 28 25-34 pg Mean Corpuscular Hemoglobin Concent 32 32-36 g/dL Red Cell Distribution Width 14.8 H 10.0-14.5 % Platelet Count 268 130-400 10^3/uL Mean Platelet Volume 10.9 9.0-12.2 fL Immature Granulocyte % (Auto) 1 % Neutrophils (%) (Auto) 72 42-75 % Lymphocytes (%) (Auto) 18 12-44 % Monocytes (%) (Auto) 7 0-12 % Eosinophils (%) (Auto) 3 0-10 % Basophils (%) (Auto) 1 0-10 % Neutrophils # (Auto) 8.7 H 1.8-7.8 10^3/uL Lymphocytes # (Auto) 2.2 1.0-4.0 10^3/uL Monocytes # (Auto) 0.8 0.0-1.0 10^3/uL Eosinophils # (Auto) 0.3 0.0-0.3 10^3/uL Basophils # (Auto) 0.1 0.0-0.1 10^3/uL Immature Granulocyte # (Auto) 0.1 0.0-0.1 10^3/uL RADHA YU DO Jan 25, 2021 10:04
[2021-01-25] MEDS ORDERED: LABETALOL HCL 20 MG/4 ML VIAL IV ONE (10:15)
[2021-01-25] MEDS ORDERED: OXYTOCIN PRE-MIX DRIP 500 ML IV SCH ×2 (10:15→15:45)
[2021-01-25 10:17] LABS: BILIRUBIN,URINE NEGATIVE (NEGATIVE); CLARITY,URINE CLEAR; COLOR,URINE YELLOW; GLUCOSE, URINE (UA) NEGATIVE (NEGATIVE); KETONES,URINE NEGATIVE (NEGATIVE); LEUKOCYTE ESTERASE ,URINE NEGATIVE (NEGATIVE); NITRITE,URINE NEGATIVE (NEGATIVE); PROTEIN,URINE NEGATIVE (NEGATIVE)
[2021-01-25] MEDS ORDERED: fentaNYL 2 mcg/ml BUPIVA 0.125 100 ML ONE (10:27)
[2021-01-25 10:31] LABS: BACTERIA,URINE NEGATIVE /HPF; SQUAMOUS EPITHELIAL CELL,UR 0-2 /HPF
[2021-01-25] MEDS ORDERED: fentaNYL INJ 100 MCG/2 ML AMP ONE (10:34)
[2021-01-25] MEDS ORDERED: BUPIVACAINE 0.25% 30 ML (SENSORCAINE) VIAL ONE ×2 (10:34→14:37)
[2021-01-25] MEDS ORDERED: ONDANSETRON 4 MG/2 ML (SDV) Z0FRAN IV PRN (11:45)
[2021-01-25] MEDS ORDERED: fentaNYL INJ 100 MCG/2 ML AMP INJ ONE (11:45)
[2021-01-25] MEDS ORDERED: NALOXONE 0.4 MG/ML 1 ML (NARCAN) VIAL IV PRN ×2 (11:45→15:45)
[2021-01-25] MEDS ORDERED: EPIDURAL (fentaNYL 2 MCG/ML BUPIVA 0.125%)100 ML BAG EPI PRN (11:45)
[2021-01-25] MEDS ORDERED: LACTATED RINGERS 1,000 ML IV ONE ×2 (11:45)
[2021-01-25] MEDS ORDERED: CATHETER FLUSH 10 ML SYR IV SCH ×2 (14:00→22:00)
[2021-01-25] MEDS ORDERED: LIDOCAINE PF 2% 5 ML (XYLOCAINE) VIAL ONE (14:47)
[2021-01-25] MEDS ORDERED: LIDOCAINE/EPI 2% 1:200,00 (XYLOCAINE) 10 ML VIAL ONE (15:02)
--- NOTE | 2021-01-25 15:32 | OB Labor & Delivery Record ---
Vag Delivery Note Vag Delivery Note Date of Delivery: 01/25/21 Preoperative Diagnosis: Alessia Tan is a 30 /Para 5/3 , Gestational Age 39 3/7 weeks, gestational hypertension Postoperative Diagnosis: Same Surgeon: RADHA YU Anesthesia: none Delivery Type: vaginal Findings: Viable male , apgars and weight pending Lacerations: none Intact placenta with 3 vessel cord. No shoulder dystocia. There was a nuchal cord, loose, x 2 and a body cord. Plus a knot in the cord. Estimated Blood Loss: 200 ml Complications: None Condition: Stable Description of Procedure: The patient is a 30 /Para 5/3 ,Gestational Age 39 3/7 weeks, gestational hypertension who presented for induction of labor. She was admitted and informed consent was obtained. Her labor course was remarkable for AROM, pitocin augmentation and thick meconium. She progressed to complete dilatation and began to push. She was then set up for delivery. The 's head was delivered atraumatically in the ELIZABETH position. The shoulders and remainder of the 's body were then delivered without difficulty. Upon delivery, the head was held below the level of the perineum and the mouth and nares were delee suctioned. The cord was doubly clamped and cut and the was handed off to the pediatric staff. An intact placenta with 3-vessel cord delivered via Lenore and there was found to be minimal bleeding.~ Vigorous fundal massage was performed and the fundus was found to be firm. IV oxytocin was given. Examination of the vagina and perineum revealed no lacerations. Following the delivery, sponge, instrument and needle counts were correct. Mom and baby were both in stable condition in the labor suite. Vitals - Labs Vital Signs - I&O Vital Signs Date Time Temp Pulse Resp B/P (MAP) Pulse Ox O2 Delivery O2 Flow Rate FiO2 01/25/21 08:40 36.7 98 17 99 Room Air Labs Laboratory Tests 01/25/21 09:00: White Blood Count 12.1H, Red Blood Count 4.50, Hemoglobin 12.6, Hematocrit 39, Mean Corpuscular Volume 86, Mean Corpuscular Hemoglobin 28, Mean Corpuscular Hemoglobin Concent 32, Red Cell Distribution Width 14.8H, Platelet Count 268, Mean Platelet Volume 10.9, Immature Granulocyte % (Auto) 1, Neutrophils (%) (Auto) 72, Lymphocytes (%) (Auto) 18, Monocytes (%) (Auto) 7, Eosinophils (%) (Auto) 3, Basophils (%) (Auto) 1, Neutrophils # (Auto) 8.7H, Lymphocytes # (Auto) 2.2, Monocytes # (Auto) 0.8, Eosinophils # (Auto) 0.3, Basophils # (Auto) 0.1, Immature Granulocyte # (Auto) 0.1, Urine Color YELLOW, Urine Clarity CLEAR, Urine pH 7.0, Urine Specific Homer 1.010L, Urine Protein NEGATIVE, Urine Glucose (UA) NEGATIVE, Urine Ketones NEGATIVE, Urine Nitrite NEGATIVE, Urine Bilirubin NEGATIVE, Urine Urobilinogen 0.2, Urine Leukocyte Esterase NEGATIVE, Urine RBC (Auto) NEGATIVE, Urine RBC NONE, Urine WBC NONE, Urine Squamous Epithelial Cells 0-2, Urine Crystals NONE, Urine Bacteria NEGATIVE, Urine Casts NONE, Urine Mucus NEGATIVE, Urine Culture Indicated NO RADHA YU DO Jan 25, 2021 15:32
[2021-01-25] MEDS ORDERED: TETANUS,DIPTH,PERTUSS P/F (BOOSTRIX) 0.5 ML VIAL IM ONE (15:45)
[2021-01-25] MEDS ORDERED: MEASLES,MUMPS,RUBELLA 1 EA INJ SQ ONE (15:45)
[2021-01-25] MEDS ORDERED: WITCH HAZEL(TUCKS) 40 EA JAR TOP PRN (15:45)
[2021-01-25] MEDS ORDERED: BENZOCAINE/MENTHOL (DERMOPLAST) 56 ML CAN TP PRN (15:45)
[2021-01-25] MEDS ORDERED: IBUP-844 PO (15:53)
[2021-01-25] MEDS ORDERED: ACET-93 PO (15:53)
[2021-01-25] MEDS ORDERED: LABETALOL HCL 20 MG/4 ML VIAL ONE (15:54)
--- NOTE | 2021-01-25 15:54 | Discharge Inst-Women's Service ---
Discharge Inst-Women's Serv Depart Medication/Instructions New, Converted or Re-Newed RX: Transmitted to Pharmacy Final Diagnosis gestational hypertension vaginal delivery Problems Reviewed?: Yes Consults/Follow Up Additional Follow Up: Yes (6 weeks) Activity Activity: Activity as Tolerated Driving Instructions: You May Drive NO SMOKING: NO SMOKING Nothing Inside Vagina: No Douching, No Davis, No Tampons Diet Discharge Diet: No Restrictions Symptoms to Report to : Bleeding Excessive, Pain Increased, Fever Over 101 Degrees F, Vaginal Bleeding Increase, Cramps in Feet or Legs, Vaginal Discharge Foul For Any Problems or Questions: Contact Your Physician RADHA YU DO Jan 25, 2021 15:54
[2021-01-25] MEDS ORDERED: COVID-19 VACC, MRNA(PFIZER)/PF 30 MCG/0.3 ML VIAL IM ONE (16:45)
[2021-01-25] MEDS: IBUPROFEN 600 MG (MOTRIN) TAB PO SCH ×2 (16:50→22:33)
[2021-01-25] MEDS: ACETAMINOPHEN 500 MG TAB (TYLENOL) PO SCH (20:54)
[2021-01-25] MEDS: DOCUSATE SODIUM 100 MG (COLACE) CAP PO SCH (20:55)
[2021-01-26 02:30] VITALS: BP 154/76
[2021-01-26 05:00] VITALS: BP 137/77
[2021-01-26] MEDS: ACETAMINOPHEN 500 MG TAB (TYLENOL) PO SCH ×2 (05:01→16:36)
[2021-01-26] MEDS: IBUPROFEN 600 MG (MOTRIN) TAB PO SCH ×4 (05:01→22:02)
[2021-01-26 06:49] LABS: BASOPHILS # (AUTO) 0.1 10^3/uL (0.0-0.1); BASOPHILS % (AUTO) 1 % (0-10); EOSINOPHILS # (AUTO) 0.3 10^3/uL (0.0-0.3); EOSINOPHILS % (AUTO) 2 % (0-10); HEMATOCRIT 36 % (35-52); HEMOGLOBIN 11.4 g/dL (11.5-16.0); LYMPHOCYTES # (AUTO) 2.5 10^3/uL (1.0-4.0); LYMPHOCYTES % (AUTO) 18 % (12-44); MEAN CORPUSCULAR HEMOGLOBIN 28 pg (25-34); MEAN CORPUSCULAR HGB CONC 32 g/dL (32-36); MEAN CORPUSCULAR VOLUME 87 fL (80-99); MEAN PLATELET VOLUME 10.7 fL (9.0-12.2); MONOCYTES # (AUTO) 1.3 10^3/uL (0.0-1.0); MONOCYTES % (AUTO) 9 % (0-12); NEUTROPHILS # (AUTO) 10.2 10^3/uL (1.8-7.8); NEUTROPHILS % (AUTO) 71 % (42-75); PLATELET COUNT 240 10^3/uL (130-400); WHITE BLOOD COUNT 14.5 10^3/uL (4.3-11.0)
[2021-01-26 06:58] LABS: ALBUMIN 2.9 GM/DL (3.2-4.5); POTASSIUM 4.3 MMOL/L (3.6-5.0)
[2021-01-26 07:00] LABS: TOTAL PROTEIN 5.7 GM/DL (6.4-8.2)
[2021-01-26] MEDS ORDERED: PRENATAL VITAMIN 1 EA TAB PO SCH (07:00)
[2021-01-26 07:02] LABS: BILIRUBIN,TOTAL 0.4 MG/DL (0.1-1.0)
[2021-01-26 07:04] LABS: CREATININE SERUM 0.54 MG/DL (0.60-1.30)
[2021-01-26 08:07] VITALS: BP 157/79
[2021-01-26] MEDS: DOCUSATE SODIUM 100 MG (COLACE) CAP PO SCH ×2 (08:08→22:01)
[2021-01-26] MEDS: amLODIPine 2.5MG (NORVASC) TAB PO SCH (08:08)
[2021-01-26] MEDS: FERROUS SULF 325 MG (IRON) TAB PO SCH (08:10)
--- NOTE | 2021-01-26 10:38 | Postpartum Progress Note ---
Note Note Day # 1 Subjective: Patient is without complaints. Ambulating, voiding. Tolerating a regular diet without nausea or vomiting. Normal lochia. Pain is well controlled with oral pain medications. . Denies CARBONE, vision disturbances/abnormalities, CP, SOB, palpitations, LE edema/pain. Objective: Vital Signs 01/26/21 08:07 Temp 36.7 Pulse 78 Resp 18 B/P (MAP) 157/79 (105) Pulse Ox 98 O2 Delivery Room Air Physical Exam: General - Alert and oriented, no apparent distress Lungs: CTAB, symmetric chest rise Heart: Normal rate and regular rhythm Abdomen - Soft, appropriately tender to palpation, non-distended, fundal exam limited by body habitus Extremities - no edema, negative Lis's bilaterally Laboratory Tests Test 01/26/21 06:40 Range/Units White Blood Count 14.5 H 4.3-11.0 10^3/uL Red Blood Count 4.09 3.80-5.11 10^6/uL Hemoglobin 11.4 L 11.5-16.0 g/dL Hematocrit 36 35-52 % Mean Corpuscular Volume 87 80-99 fL Mean Corpuscular Hemoglobin 28 25-34 pg Mean Corpuscular Hemoglobin Concent 32 32-36 g/dL Red Cell Distribution Width 15.0 H 10.0-14.5 % Platelet Count 240 130-400 10^3/uL Mean Platelet Volume 10.7 9.0-12.2 fL Immature Granulocyte % (Auto) 1 % Neutrophils (%) (Auto) 71 42-75 % Lymphocytes (%) (Auto) 18 12-44 % Monocytes (%) (Auto) 9 0-12 % Eosinophils (%) (Auto) 2 0-10 % Basophils (%) (Auto) 1 0-10 % Neutrophils # (Auto) 10.2 H 1.8-7.8 10^3/uL Lymphocytes # (Auto) 2.5 1.0-4.0 10^3/uL Monocytes # (Auto) 1.3 H 0.0-1.0 10^3/uL Eosinophils # (Auto) 0.3 0.0-0.3 10^3/uL Basophils # (Auto) 0.1 0.0-0.1 10^3/uL Immature Granulocyte # (Auto) 0.1 0.0-0.1 10^3/uL Sodium Level 138 135-145 MMOL/L Potassium Level 4.3 3.6-5.0 MMOL/L Chloride Level 106 98-107 MMOL/L Carbon Dioxide Level 21 21-32 MMOL/L Anion Gap 11 5-14 MMOL/L Blood Urea Nitrogen 5 L 7-18 MG/DL Creatinine 0.54 L 0.60-1.30 MG/DL Estimat Glomerular Filtration Rate 132 BUN/Creatinine Ratio 9 Glucose Level 86 70-105 MG/DL Calcium Level 9.0 8.5-10.1 MG/DL Corrected Calcium 9.9 8.5-10.1 MG/DL Total Bilirubin 0.4 0.1-1.0 MG/DL Aspartate Amino Transf (AST/SGOT) 26 5-34 U/L Alanine Aminotransferase (ALT/SGPT) 14 0-55 U/L Alkaline Phosphatase 128 40-136 U/L Total Protein 5.7 L 6.4-8.2 GM/DL Albumin 2.9 L 3.2-4.5 GM/DL Assessment: - post- day # 1, status post uncomplicated vaginal delivery. - Gestational hypertension vs. PreE w/severe features: Now mild range BPs. Multiple severe range BPs at time of delivery and within 1hr of delivery. S/P IV labetalol x1 immediately after delivery with improvement of BPs since that time. Patient without symptoms of severe PreE at this time. AM CBC/CMP without signs of end organ dysfunction - Recovering well Plan: Routine care. Encourage breast feeding. Encourage ambulation. Ferrous sulfate supplementation. Continue Norvasc 2.5mg daily as previously prescribed during . Continue close BP monitoring and for S&S of severe PreE. Consider Mag for seizure prophylaxis if recurrence of severe range BPs or if development of other severe S&S Plan for discharge: pending improvement in patient BPs Vitals - Labs Vital Signs - I&O Vital Signs Date Time Temp Pulse Resp B/P (MAP) Pulse Ox O2 Delivery O2 Flow Rate FiO2 01/26/21 08:07 36.7 78 18 157/79 (105) 98 Room Air 01/26/21 05:00 36.0 87 16 137/77 (97) 99 Room Air 01/26/21 02:30 154/76 (102) 01/25/21 23:40 36.4 82 16 160/74 (102) 98 Room Air 01/25/21 20:50 36.3 93 16 138/71 (93) 99 Room Air 01/25/21 18:12 88 16 149/72 (97) 01/25/21 17:42 90 16 131/66 (87) 01/25/21 17:13 94 16 136/70 (92) 01/25/21 16:58 96 16 153/76 (101) 01/25/21 16:50 91 17 164/79 (107) 01/25/21 16:28 98 17 183/71 (108) 01/25/21 16:13 93 17 154/70 (98) 01/25/21 16:04 94 17 179/77 (111) 100 01/25/21 15:58 88 17 189/82 (117) 100 01/25/21 15:44 93 17 193/88 (123) 100 01/25/21 15:27 93 17 166/76 (106) 01/25/21 15:22 105 17 176/76 (109) 01/25/21 15:18 91 17 186/93 (124) 01/25/21 15:00 90 17 161/84 (109) 01/25/21 14:45 88 18 168/77 (107) 01/25/21 14:30 101 18 147/92 (110) 01/25/21 14:10 86 17 155/77 (103) 01/25/21 14:00 86 17 145/70 (95) 01/25/21 13:40 89 17 143/80 (101) 100 01/25/21 13:10 82 17 132/71 (91) 99 01/25/21 12:45 88 16 138/72 (94) 98 01/25/21 12:30 96 16 139/90 (106) 99 01/25/21 12:25 84 16 139/82 (101) 99 01/25/21 12:20 82 16 145/80 (101) 100 01/25/21 12:15 81 16 137/71 (93) 99 01/25/21 12:10 94 16 135/68 (90) 99 01/25/21 12:05 85 16 153/79 (103) 97 01/25/21 12:00 77 16 142/79 (100) 99 I & O 01/26/21 07:00 Intake Total 2500 ml Balance 2500 ml Labs Laboratory Tests 01/26/21 06:40: White Blood Count 14.5H, Red Blood Count 4.09, Hemoglobin 11.4L, Hematocrit 36, Mean Corpuscular Volume 87, Mean Corpuscular Hemoglobin 28, Mean Corpuscular Hemoglobin Concent 32, Red Cell Distribution Width 15.0H, Platelet Count 240, Mean Platelet Volume 10.7, Immature Granulocyte % (Auto) 1, Neutrophils (%) (Auto) 71, Lymphocytes (%) (Auto) 18, Monocytes (%) (Auto) 9, Eosinophils (%) (Auto) 2, Basophils (%) (Auto) 1, Neutrophils # (Auto) 10.2H, Lymphocytes # (Auto) 2.5, Monocytes # (Auto) 1.3H, Eosinophils # (Auto) 0.3, Basophils # (Auto) 0.1, Immature Granulocyte # (Auto) 0.1, Sodium Level 138, Potassium Level 4.3, Chloride Level 106, Carbon Dioxide Level 21, Anion Gap 11, Blood Urea Nitrogen 5L, Creatinine 0.54L, Estimat Glomerular Filtration Rate 132, BUN/Creatinine Ratio 9, Glucose Level 86, Calcium Level 9.0, Corrected Calcium 9.9, Total Bilirubin 0.4, Aspartate Amino Transf (AST/SGOT) 26, Alanine Aminotransferase (ALT/SGPT) 14, Alkaline Phosphatase 128, Total Protein 5.7L, Albumin 2.9L SABINA LOWE MD Jan 26, 2021 10:38
[2021-01-26 12:53] VITALS: BP 146/74
--- NOTE | 2021-01-26 13:46 | Anesthesia-Regional Post-Op ---
Regional Patient Condition Mental Status: Alert, Oriented x3 Circulation: Same as Pre-Op Headache: Absent Sensation: Full Recovery Motor Block: Absent Post Op Complications Complications None Follow Up Care/Instructions Patient Instructions Pt complained of back being soar. Reassured patient that was not abnormal, but it the discomfort increased to pain or if it has not gone away in a week to call and have have Anesthesia follow-up. Anesthesia/Patient Condition Patient is doing well, no complaints other than noted above, stable vital signs, no apparent adverse anesthesia problems. No complications reported per nursing other than noted above. DAISHA KRAUS [place] ATTENDANT Jan 26, 2021 13:46
[2021-01-26 16:38] VITALS: BP 150/72
[2021-01-26 22:02] VITALS: BP 146/78
[2021-01-27] MEDS: ACETAMINOPHEN 500 MG TAB (TYLENOL) PO SCH ×2 (00:07→08:37)
[2021-01-27 04:34] VITALS: BP 141/74
[2021-01-27] MEDS: IBUPROFEN 600 MG (MOTRIN) TAB PO SCH ×2 (04:34→11:31)
[2021-01-27] MEDS: amLODIPine 2.5MG (NORVASC) TAB PO SCH (08:36)
[2021-01-27] MEDS: FERROUS SULF 325 MG (IRON) TAB PO SCH (08:36)
[2021-01-27] MEDS: DOCUSATE SODIUM 100 MG (COLACE) CAP PO SCH (08:36)
--- NOTE | 2021-01-27 11:59 | Postpartum Progress Note ---
Note Note Day #2 Subjective: Patient is without complaints. Feels well today. Ambulating, voiding. Tolerating a regular diet without nausea or vomiting. Normal lochia. Pain is well controlled with oral pain medications. . Denies CARBONE, vision disturbances/abnormalities, CP, SOB, palpitations, LE edema/pain. Objective: Vital Signs 01/27/21 04:34 Temp 36.0 Pulse 74 Resp 18 B/P (MAP) 141/74 (96) Pulse Ox 98 O2 Delivery Room Air Physical Exam: General - Alert and oriented, no apparent distress Lungs: symmetric chest rise, nonlabored respirations Heart: Normal heart rate, trace equal bilat LE edema Abdomen - obese, fundal exam limited by body habitus Extremities - trace equal bilat LE edema, negative Lis's bilaterally Assessment: - post- day # 2, status post uncomplicated vaginal delivery. - Gestational hypertension: mild range BPs. Multiple severe range BPs at time of delivery and within 1hr of delivery. S/P IV labetalol x1 immediately after delivery with improvement of BPs. Patient without symptoms of severe PreE. PPD#1 CBC/CMP without signs of end organ involvement - Recovering well from a and gHTN point of view. Does not have and does not desire home BP cuff. Ok for discharge today if no new concerns develop Plan: - Routine care while inpatient. - Encourage breast feeding. - Encourage ambulation. - Ferrous sulfate supplementation. - Continue Norvasc 2.5mg daily as previously prescribed during . Continue close BP monitoring and for S&S of severe PreE while inpatient. - Plan for discharge: plan for discharge today if no new concerns develop. Strict return precautions discussed worsening vaginal bleeding, fever of 100.4F or higher, intractable n/v, uncontrolled pain, CP, SOB, or other concerns. S&S of severe PreE were also discussed to include persistent CARBONE, vision abnormalities, RUQ pain, CP, SOB. Patient voiced understanding. Return to clinic for 1 week BP check and 6 wk visit. Vitals - Labs Vital Signs - I&O Vital Signs Date Time Temp Pulse Resp B/P (MAP) Pulse Ox O2 Delivery O2 Flow Rate FiO2 01/27/21 04:34 36.0 74 18 141/74 (96) 98 Room Air 01/26/21 22:02 36.1 78 16 146/78 (100) 98 Room Air 01/26/21 16:38 36.8 88 16 150/72 (98) 98 Room Air 01/26/21 12:53 36.3 88 18 146/74 (98) 99 Room Air SABINA LOWE MD Jan 27, 2021 11:59
[2021-01-27 12:00] VITALS: BP 141/91
--- NOTE | 2021-01-27 13:04 | Short Stay Summary ---
Discharge Summary Hospital Course Was the Problem List Reviewed?: Yes Final Diagnosis: IOL, Normal Vaginal delivery, Gestational HTN Hospital Course Date of Admission: Jan 25, 2021 at 08:06 Admission Diagnosis : Family Physician/Provider: Be Navarrete MD Date of Discharge: 01/27/21 Discharge Diagnosis: s/p induction of labor, s/p spontaneous vaginal delivery, gestational hypertension Hospital Course: Ms. Tan is a 30 yo G5 now P4014, who presented for induction of labor secondary to gestational hypertension. Her labor course and delivery course was remarkable for AROM with thick meconium stained amniotic fluid, and she received pitocin augmentation. Otherwise uncomplicated (see labor notes and delivery summary). Patient's course was complicated by her gestational hypertension. She did require acute antihypertensive treatment with IV labetalol for severe range blood pressure immediately , with resolution. On PPD#1, she had a Hgb 11.4g/dL, and was doing well. She continued to have mild range blood pressures and did not require acute antihypertensive treatments. CBC and CMP were unremarkable for signs of end organ involvement. She was continued on her home Norvasc 2.5mg daily. On PPD #2, blood pressures continued to show improvement, and she did not develop any symptoms of preeclampsia with severe features. Patient was meeting all goals; ambulating without difficulty, appropriate urine output, positive flatus, tolerating diet, minimal lochia, and pain was controlled. She desired discharge, and was discharged to home on PPD#2 in stable medical condition Labs and Pending Lab Test: Home Meds Active Acetaminophen 500 Mg Tablet 1,000 Mg PO Q8HR Ibu (Ibuprofen) 600 Mg Tablet 600 Mg PO Q6HR Reported Tablet ( Vit#96/Ferrous Fum/Fa) 1 Each Tablet 1 Tab PO DAILY Assessment/Pt Instructions Assessment: - post- day # 2, status post uncomplicated vaginal delivery. - Gestational hypertension: mild range BPs. Multiple severe range BPs at time of delivery and within 1hr of delivery. S/P IV labetalol x1 immediately after delivery with improvement of BPs. Patient without symptoms of severe PreE. PPD#1 CBC/CMP without signs of end organ involvement - Recovering well from a and gHTN point of view. Does not have and does not desire home BP cuff. Plan: - Routine care while inpatient. - Encourage breast feeding. - Encourage ambulation. - Ferrous sulfate supplementation. - Continue Norvasc 2.5mg daily as previously prescribed during . - Plan for discharge: strict return precautions discussed worsening vaginal bleeding, fever of 100.4F or higher, intractable n/v, uncontrolled pain, CP, SOB, or other concerns. S&S of severe PreE were also discussed to include persistent CARBONE, vision abnormalities, RUQ pain, CP, SOB. Patient voiced understanding. Return to clinic for 1 week BP check and 6 wk visit. Discharge Instructions Discharge Diet: No Restrictions Activity as Tolerated: Yes Discharge Physical Examination General Appearance: Alert, Oriented X3, Cooperative HEENT: Atraumatic, EOMI Respiratory: Other (non-labored respirations, symmetric chest rise) Cardiovascular: Other (normal heart rate and peripheral perfusion) Abdominal: Soft, No Tenderness, No Masses Extremities: Other (trace equal bilat LE edema, NTTP) Skin: No Breakdown, No Significant Lesion Neuro: Normal Gait, Normal Speech Psych/Mental Status: Mental Status NL Allergies: Coded Allergies: No Known Drug Allergies (Unverified , 05/15/12) Discharge Summary Date of Admission Jan 25, 2021 at 08:06 Date of Discharge 01/27/2021 Discharge Date: Jan 27, 2021 Discharge Time: 13:25 Admission Diagnosis Intrauterine at 39 weeks 3 days gestational age Gestational hypertension Induction of labor Consults/Procedures Consulations Anesthesia Procedures Induction of labor Discharge Diagnosis s/p induction of labor s/p normal vaginal delivery Gestational hypertension (1) Gestational hypertension without significant proteinuria, (2) Normal vaginal delivery SABINA LOWE MD Jan 27, 2021 13:01
[2021-01-27 13:35] VITALS: BP 141/91
--- NOTE | 2021-01-28 10:31 | Physician Query Clarification ---
PQ-Intro New Diagnosis Admission/Discharge Admission Date: Jan 25, 2021 at 08:06 Discharge Date: Jan 27, 2021 at 13:35 The medical record reflects the following clinical scenario: Dr. Devi states gestational hypertension versus pre-eclampsia with severe features on his progress note. History/Risk Factors: gestational hypertension Clinical Findings: Severe range BP's at time of delivery and within 1 hour of delivery Treatment: Norvasc, monitor BP, IV Labetol after delivery Question: What condition best reflects the above clinical scenario? Please document a response in the Progress Noter or Discharge Summary. 1. Gestational hypertension 2. Severe pre-eclampsia 3. Other, with explanation of the clinical findings. 4. Clinically undetermined, no explanation for the clinical findings. Please remember a lack of response to the above will prompt a phone page by [facility]/Coding staff. In responding to this query, please exercise your independent professional judgment. The purpose of this communication is to more accurately reflect the complexity of your patients condition. The fact that a question is asked does not imply that any particular answer is desired or expected. Thank you for your timely response to this clarification. Requestors name: Lizbeth THIS PHYSICIAN QUERY FORM IS A PERMANENT PART OF THE MEDICAL RECORD LIZBETH PADILLA Jan 28, 2021 10:31
== END 2021-01-27 13:35 | disposition home or self-care (01) | DRG 807 ==
LOC: LDRP 08:06
PROVIDERS: ADMIT Obstetrics & Gynecology; ATTEND Obstetrics & Gynecology
PROC: 10E0XZZ Delivery of Products of Conception, External Approach (ICD-10-PCS; principal; 2021-01-25)
PROC: 10907ZC Drainage of Amniotic Fluid, Therapeutic from Products of Conception, Via Natural or Artificial Opening (ICD-10-PCS; 2021-01-25)
DX: O13.4 Gestational [pregnancy-induced] hypertension without significant proteinuria, complicating childbirth (principal); Z37.0 Single live birth; Z3A.39 39 weeks gestation of pregnancy; O69.2XX0 Labor and delivery complicated by other cord entanglement, with compression, not applicable or unspecified; O69.81X0 Labor and delivery complicated by cord around neck, without compression, not applicable or unspecified; O77.0 Labor and delivery complicated by meconium in amniotic fluid
CPT/HCPCS: 36415; 80053; 81000; 83033; 85025; 86850; 86900; 86901

== ENCOUNTER → 2021-03-22 | Outpatient (CLI) | payer BC ==
[~2021-03-22] MED LIST changes: +ACET-93 PO
== END ==
LOC: CARD 08:30
PROVIDERS: ATTEND Internal Medicine Cardiovascular Disease
DX: I10 Essential (primary) hypertension (principal)
CPT/HCPCS: 93306

== ENCOUNTER → 2021-05-01 | Outpatient (CLI) | payer BC ==
[2021-05-01 10:29] VITALS: BP 138/78
--- NOTE | 2021-05-01 11:33 | Cardiology Stress Test Report ---
Stress Test Report Date of Procedure/Referring: Date of Procedure: May 01, 2021 PCP Amelie Noe MD Admitting Physician Be Navarrete MD Indications: CP Baseline Heart Rate: 98 Baseline Blood Pressure: Blood Pressure Systolic: 138 Blood Pressure Diastolic: 78 Baseline EKG: Baseline EKG: NSR Summary/Conclusion: Summary: In summary, the patient started exercising with a baseline heart rate, blood pressure and EKG mentioned above Patient was able to exercise for a total of 7 minutes on Srikanth protocol, METs 8 .5 Maximum heart rate 174 Maximum blood pressure 196/58 Stress EKG, Minimal nondiagnostic changes Recovery EKG , Return to baseline Conclusion: 1. Good exercise tolerance for a total of 7 minutes on Srikanth protocol, 8.5 METs, achieving 92 percent of maximum expected heart rate 2. Minimal nondiagnostic EKG changes with exercise returned to baseline during recovery 3. No arrhythmia was noted AMELIE NOE MD May 01, 2021 11:33
== END ==
LOC: CARD 10:30
PROVIDERS: ATTEND Internal Medicine Cardiovascular Disease
DX: R07.9 Chest pain, unspecified (principal)
CPT/HCPCS: 93017

== ENCOUNTER 2022-05-01 15:37 | Emergency (ER) | payer BC ==
[~2022-05-01] VITALS: Ht 157.5 cm; Wt 113.0 kg
[~2022-05-01 15:37] MED LIST changes: +ACET-11 PO; -ACET1TAB43 PO
--- NOTE | 2022-05-01 16:02 | ED Chest Pain ---
General Chief Complaint: Chest Pain Stated Complaint: CHEST TIGHTNESS - LEFT SHOULDER ACHE Nursing Triage Note: PT AMB TO ED BY POV WITH C/O CHEST TIGHTNESS. PT REPORTS SHE WOKE UP WITH L SHOULDER PAIN THURSDAY MORNING, RELIEVED WITH IBUPROFEN AND HEATING PAD. THIS AFTERNOON, PT WOKE UP FROM [facility] WITH DULL PAIN UNDER L BREAST, L CHEST TIGHTNESS, L SHOULDER ACHE. PT REPORTS HER YOUNGER SISTER HAD A MA LAST YEAR. DENIES SOB, N/V, DIZZINESS OR ANY TOHER SX AT THIS TIME. Source: patient Exam Limitations: no limitations History of Present Illness Date Seen by Provider: May 01, 2022 Time Seen by Provider: 15:57 Initial Comments Patient is a 32-year-old female with a history of hypertension who presents the ED with chest tightness, left shoulder pain. She states symptoms started this Thursday and located near her left shoulder blade. She woke up with a dull ache worse with movement. That pain has improved. This afternoon she started to develop a dull pain underneath her left breast when getting her kids ready. She Rates the pain 1 out of 10 without increase intensity with exertion or deep inspiration. She started feeling short of breath and used her inhaler with improvement of the shortness of breath. She reports history of similar pain in the past. She had a unremarkable stress test [address]. Noe is her mammal control agent. Strong family cardiac history. She currently on lisinopril/ hydrochlorothiazide at a low dose for HTN. She denies of any recent travels, surgeries, control, leg swelling, cough, fever, vomiting, diarrhea, lightheadedness, headache, numbness and tingling, trauma or abdominal pain. Denies smoking, diabetes, high cholesterol. No increasing pain with ea ting. Allergies and Home Medications Allergies Coded Allergies: No Known Drug Allergies (Unverified , 05/15/12) Patient Home Medication List Home Medication List Reviewed: Yes Acetaminophen (Acetaminophen) 500 Mg Tablet, 1,000 MG PO Q8HR Prescribed by: RADHA YU on 01/25/211552 Ibuprofen (Ibu) 600 Mg Tablet, 600 MG PO Q6HR Prescribed by: RADHA YU on 01/25/211552 Vit#96/Ferrous Fum/Fa ( Tablet) 1 Each Tablet, 1 TAB PO DAILY, (Reported) Entered as Reported by: LUIS MANUEL ROLLINS on 12/13/13 1245 Review of Systems Review of Systems Constitutional: No chills, No diaphoresis, No malaise, No weakness EENTM: No Eye Pain, No Mouth Pain, No Mouth Swelling Respiratory: Denies Cough, Denies Orthopnea; Shortness of Air Cardiovascular: Chest Pain Gastrointestinal: Denies Abdomen Distended, Denies Abdominal Pain, Denies Diarrhea, Denies Nausea, Denies Vomiting Genitourinary: Denies Burning, Denies Discharge Musculoskeletal: No back pain, No joint pain; muscle pain Skin: No change in color, No change in hair/nails Psychiatric/Neurological: Denies Anxiety Past Gyfpocn-Adetzp-Rkzfhv Hx Patient Social History Tobacco Use?: No Use of E-Cig and/or Vaping dev: No Substance use?: No Alcohol Use?: No Pt feels they are or have been: No Immunizations Up To Date Tetanus Booster (TDap): Less than 5yrs PED Vaccines UTD: Yes Influenza Vaccine Up-to-Date: No; Not Current Seasonal Allergies Seasonal Allergies: Yes (ALLERGY SHOTS WKLY) Past Medical History Surgery/Hospitalization HX: HTN Surgeries: Yes (right shoulder surgery 2004, left knee scope 2008, left knee scope 2009,) Gallbladder, Orthopedic, Tonsillectomy Respiratory: Yes Asthma Cardiac: No Neurological: No Reproductive Disorders: No Female Reproductive Disorders: Denies Sexually Transmitted Disease: No HIV/AIDS: No Genitourinary: No Gastrointestinal: No Musculoskeletal: No Endocrine: No Loss of Vision: Denies Cancer: No Psychosocial: No Integumentary: No Blood Disorders: No Adverse Reaction/Blood Tranf: No Family Medical History Asthma 19 FATHER, Age:49, Onset:Unknown 19 MOTHER, Age:43, Onset:Unknown Cardiovascular disease 19 MOTHER, Age:43, Onset:40's - 50 Hypertension 19 MOTHER, Age:43, Onset:15's - 20 G8 SISTER, Onset:Unknown Kidney disease G8 SISTER, Onset:Unknown No Family History of: AIDS Asthma, Heart Disease, Hypertension Physical Exam Vital Signs Vital Signs - First Documented 05/01/22 15:45 Pulse 118 Resp 15 B/P (MAP) 168/66 (100) Pulse Ox 98 O2 Delivery Room Air Capillary Refill : Less Than 3 Seconds Height, Weight, BMI Height: 5'2.00" Weight: 230lbs. 2.0oz. 104.227976fs; 45.00 BMI Method:Stated General Appearance: No Apparent Distress, WD/WN HEENT: PERRL/EOMI, TMs Normal, Normal ENT Inspection, Pharynx Normal Neck: Full Range of Motion, Normal Inspection Respiratory: Chest Non Tender, Lungs Clear, Normal Breath Sounds, No Accessory Muscle Use, No Respiratory Distress, Other (No chest wall tenderness.) Cardiovascular: No Edema, No Gallop, No JVD, No Murmur, Tachycardia Gastrointestinal: Normal Bowel Sounds, No Organomegaly, No Pulsatile Mass, Non Tender Extremity: Normal Capillary Refill, Normal Range of Motion, Other (Mild tenderness to left shoulder blade. Normal active range of motion left shoulder. Neurovascular intact.) Neurologic/Psychiatric: Alert, Oriented x3, No Motor/Sensory Deficits, Normal Mood/Affect, cleat feeder II-XII Norm as Tested Skin: Normal Color, Warm/Dry Progress/Results/Core Measures Results/Orders Lab Results Laboratory Tests Test 05/01/22 15:54 05/01/22 18:13 Range/Units White Blood Count 13.4 H 4.3-11.0 10^3/uL Red Blood Count 4.89 3.80-5.11 10^6/uL Hemoglobin 13.4 11.5-16.0 g/dL Hematocrit 41 35-52 % Mean Corpuscular Volume 84 80-99 fL Mean Corpuscular Hemoglobin 27 25-34 pg Mean Corpuscular Hemoglobin Concent 33 32-36 g/dL Red Cell Distribution Width 13.7 10.0-14.5 % Platelet Count 358 130-400 10^3/uL Mean Platelet Volume 10.1 9.0-12.2 fL Immature Granulocyte % (Auto) 1 % Neutrophils (%) (Auto) 53 42-75 % Lymphocytes (%) (Auto) 31 12-44 % Monocytes (%) (Auto) 10 0-12 % Eosinophils (%) (Auto) 4 0-10 % Basophils (%) (Auto) 1 0-10 % Neutrophils # (Auto) 7.1 1.8-7.8 10^3/uL Lymphocytes # (Auto) 4.2 H 1.0-4.0 10^3/uL Monocytes # (Auto) 1.4 H 0.0-1.0 10^3/uL Eosinophils # (Auto) 0.5 H 0.0-0.3 10^3/uL Basophils # (Auto) 0.1 0.0-0.1 10^3/uL Immature Granulocyte # (Auto) 0.2 H 0.0-0.1 10^3/uL Prothrombin Time 13.2 12.2-14.7 SEC INR Comment 1.0 0.8-1.4 Activated Partial Thromboplast Time 29 24-35 SEC D-Dimer <= 0.27 0.00-0.49 UG/ML Sodium Level 140 135-145 MMOL/L Potassium Level 3.7 3.6-5.0 MMOL/L Chloride Level 104 98-107 MMOL/L Carbon Dioxide Level 22 21-32 MMOL/L Anion Gap 14 5-14 MMOL/L Blood Urea Nitrogen 13 7-18 MG/DL Creatinine 0.97 0.60-1.30 MG/DL Estimat Glomerular Filtration Rate 79 BUN/Creatinine Ratio 13 Glucose Level 81 70-105 MG/DL Calcium Level 9.1 8.5-10.1 MG/DL Corrected Calcium 8.9 8.5-10.1 MG/DL Magnesium Level 1.9 1.6-2.4 MG/DL Total Bilirubin 0.3 0.1-1.0 MG/DL Aspartate Amino Transf (AST/SGOT) 24 5-34 U/L Alanine Aminotransferase (ALT/SGPT) 33 0-55 U/L Alkaline Phosphatase 63 40-136 U/L Myoglobin 16.6 10.0-92.0 NG/ML Troponin I < 0.028 < 0.028 <0.028 NG/ML Total Protein 7.6 6.4-8.2 GM/DL Albumin 4.3 3.2-4.5 GM/DL Lipase 21 8-78 U/L Serum Test, Qualitative NEGATIVE NEGATIVE My Orders Orders - TRUDY AC PA Ekg Tracing (05/01/22 15:47) Cbc With Automated Diff (05/01/22 15:55) Magnesium (05/01/22 15:55) Chest 1 View, Ap/Pa Only (05/01/22 15:55) Comprehensive Metabolic Panel (05/01/22 15:55) Myoglobin Serum (05/01/22 15:55) Protime With Inr (05/01/22 15:55) Partial Thromboplastin Time (05/01/22 15:55) O2 (05/01/22 15:55) Monitor-Rhythm Ecg Trace Only (05/01/22 15:55) Ed Iv/Invasive Line Start (05/01/22 15:55) Lipase (05/01/22 15:55) Fibrin Degradation Products (05/01/22 15:55) Troponin I [place] (05/01/22 15:55) Aspirin Chewable Tablet (Baby Aspirin Ch (05/01/22 16:00) Hcg,Qualitative Serum (05/01/22 16:06) Aspirin Chewable Tablet (Baby Aspirin Ch (05/01/22 16:06) Troponin I Radha (05/01/22 17:43) Medications Given in ED Current Medications Medications Dose Ordered Sig/Alia Route Start Time Stop Time Status Last Admin Dose Admin Aspirin 324 mg ONCE ONCE PO 05/01/22 16:00 05/01/22 16:01 DC 05/01/22 16:07 324 MG Vital Signs/I&O 05/01/22 05/01/22 15:45 18:53 Pulse 118 80 Resp 15 18 B/P (MAP) 168/66 (100) 130/77 Pulse Ox 98 100 O2 Delivery Room Air Room Air Blood Pressure Mean: 100 Departure Communication (PCP) Patient EKG without evidence of ST elevation or depression. Sinus tachycardia, beats 102 bpm, QRS duration 79, QTc 489. Borderline prolonged QT interval. Nonspecific T wave abnormality with similar type results in 2018. No diffuse ST elevation. No evidence of Brugada syndrome, WPW, A-fib, a flutter on EKG. Left- sided chest discomfort, left posterior shoulder blade dull pain is rated 1 out of 10. Not worse with exertion. She had a stress test performed by Dr. Noe 1 year ago from today which was nondiagnostic. Unremarkable echocardiogram. She has a strong family history with her sister having a MA at 28 years of age. She is currently on blood pressure medication lisonpril/hctz according to patient and became normotensive with recheck after her first blood pressure reading. Negative D-dimer. Lab work was otherwise unremarkable besides slightly elevated white blood count at 13.8. No recent URI. She denies weight loss or history of cancer. No urinary symptoms. Her abdomen is soft. PECARN and Wells criteria 0 is at low risk. She was given aspirin 324mg initially. Pain is tolerable and improved. Refused anymore pain medication. She does have some discomfort with movement of the left shoulder and on palpation which makes me believe this is potentially more musculoskeletal. Initial troponin negative. She agreed to atleast A 2 hour troponin. Second redraw 2-hour troponin was negative. Patient is currently pain-free. Will have patient follow-up outpatient with [facility] rdiology.. If any worsening symptoms return back to ED for further evaluation. Recommend heating pad and NSAIDs and Tylenol. Impression Primary Impression: Chest pain Disposition: HOME, SELF-CARE Condition: Stable Departure-Patient Inst. Decision time for Depature: 18:38 Referrals: AMELIE NOE MD, CHAD C MD (PCP/Family) Primary Care Physician Patient Instructions: Chest Pain (DC) Add. Discharge Instructions: Recommend heating pad, Tylenol or ibuprofen for pain. Outpatient cardiac follow-up with Dr. Noe. If any worsening symptoms return back to ED for further evaluation All discharge instructions reviewed with patient and/or family. Voiced understanding. Work/School Note: Work Release Form Date Seen in the Emergency Department: May 01, 2022 Return to Work: May 05, 2022 TRUDY AC May 01, 2022 16:02
[2022-05-01 16:06] LABS: BASOPHILS # (AUTO) 0.1 10^3/uL (0.0-0.1); BASOPHILS % (AUTO) 1 % (0-10); EOSINOPHILS # (AUTO) 0.5 10^3/uL (0.0-0.3); EOSINOPHILS % (AUTO) 4 % (0-10); HEMATOCRIT 41 % (35-52); HEMOGLOBIN 13.4 g/dL (11.5-16.0); LYMPHOCYTES # (AUTO) 4.2 10^3/uL (1.0-4.0); LYMPHOCYTES % (AUTO) 31 % (12-44); MEAN CORPUSCULAR HEMOGLOBIN 27 pg (25-34); MEAN CORPUSCULAR HGB CONC 33 g/dL (32-36); MEAN CORPUSCULAR VOLUME 84 fL (80-99); MEAN PLATELET VOLUME 10.1 fL (9.0-12.2); MONOCYTES # (AUTO) 1.4 10^3/uL (0.0-1.0); MONOCYTES % (AUTO) 10 % (0-12); NEUTROPHILS # (AUTO) 7.1 10^3/uL (1.8-7.8); NEUTROPHILS % (AUTO) 53 % (42-75); PLATELET COUNT 358 10^3/uL (130-400); WHITE BLOOD COUNT 13.4 10^3/uL (4.3-11.0)
[2022-05-01] MEDS: ASPIRIN 81 MG CHEW (CHILDREN'S ASA) PO ONE (16:07)
[2022-05-01 16:08] LABS: ALBUMIN 4.3 GM/DL (3.2-4.5); POTASSIUM 3.7 MMOL/L (3.6-5.0)
[2022-05-01 16:10] LABS: CALCIUM 9.1 MG/DL (8.5-10.1)
[2022-05-01 16:11] LABS: TOTAL PROTEIN 7.6 GM/DL (6.4-8.2)
[2022-05-01 16:13] LABS: BILIRUBIN,TOTAL 0.3 MG/DL (0.1-1.0)
[2022-05-01 16:14] LABS: CREATININE SERUM 0.97 MG/DL (0.60-1.30)
[2022-05-01 16:17] LABS: MAGNESIUM 1.9 MG/DL (1.6-2.4)
[2022-05-01] MEDS: ASPIRIN 81 MG CHEW (CHILDREN'S ASA) ONE (16:17)
[2022-05-01 16:21] LABS: PROTHROMBIN TIME PATIENT 13.2 SEC (12.2-14.7)
--- NOTE | 2022-05-01 16:23 | Diagnostic Imaging Report ---
INDICATION: Chest pain. TECHNIQUE: Frontal chest obtained at 04:14 p.m. and compared to 12/10/2017. FINDINGS: Heart and mediastinal silhouette are normal in appearance. The lungs are clear. There is no pneumothorax or pleural fluid. IMPRESSION: Negative chest. Dictated by: Dictated on workstation # [id number]
[2022-05-01 18:53] VITALS: BP 130/77
== END 2022-05-01 19:02 | disposition home or self-care (01) ==
LOC: EDUNIT# 15:37 → ER 15:39
DX: R07.89 Other chest pain (principal); M25.512 Pain in left shoulder; R00.0 Tachycardia, unspecified; D72.829 Elevated white blood cell count, unspecified; I10 Essential (primary) hypertension; Z79.899 Other long term (current) drug therapy; Z28.310 Unvaccinated for COVID-19
CPT/HCPCS: 36415; 71045; 80053; 83690; 83735; 83874; 84484; 84703; 85025; 85379; 85610; 85730; 93005; 93041